=== PATIENT | female | born 1995 | race Two or more races ===

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

== ENCOUNTER 2018-12-31 03:10 | Emergency (ER) | payer SELFPAY ==
[2018-12-31] MEDS ORDERED: IPRATROPIUM/ALBUTEROL 0.5-2.5 MG/3 ML AMPUL NEB ONE (04:24)
[2018-12-31] MEDS ORDERED: METHYLPREDNISOLONE INJ 125 MG/2 ML SDV IV ONE (04:25)
[2018-12-31] MEDS ORDERED: ALBUTEROL SULFATE 0.083% NEB 2.5 MG/3 ML AMPUL NEB ONE (04:25)
[2018-12-31] MEDS: MAGNESIUM SULFATE/D5W 1 GM/100 ML RTUPB IV SCH ×2 (04:43→05:03)
[2018-12-31] MEDS ORDERED: ALBUTEROL SULFATE HFA (90 MCG/PUFF) 8 GM MDI (1 MDI/ER DISP) IH ONE (05:53)
--- NOTE | 2018-12-31 05:54 | ER Document Report ---
ED Respiratory Problem - General Chief Complaint: Shortness Of Breath Stated Complaint: TROUBLE BREATHING Time Seen by Provider: 12/31/18 04:16 Mode of Arrival: Ambulatory Information source: Patient Notes: Patient is a 23-year-old female presenting to the emergency department with productive cough and wheezing that has been ongoing for 2 days. Patient denies history of asthma but reports that she has been prescribed an inhaler in the past. Patient denies any fevers or chills. Patient is speaking in short choppy sentences. TRAVEL OUTSIDE OF THE [place] IN LAST 30 DAYS: No - Related Data Allergies/Adverse Reactions: No Known Allergies Allergy (Verified 10/29/16 12:07) Past Medical History - General Information source: Patient - Social History Smoking Status: Never Smoker Chew tobacco use (# tins/day): No Frequency of alcohol use: Occasional Drug Abuse: Marijuana Family History: CVA, DM, Hypertension, Malignancy - Oral cancer Patient has suicidal ideation: No Patient has homicidal ideation: No Pulmonary Medical History: Reports: Hx Bronchitis - 2011 Renal/ Medical History: Denies: Hx Peritoneal Dialysis Musculoskeletal Medical History: Reports Hx Musculoskeletal Trauma Surgical Hx: Negative - Immunizations Immunizations up to date: Yes Hx Diphtheria, Pertussis, Tetanus Vaccination: Yes Review of Systems - Review of Systems Constitutional: No symptoms reported EENT: No symptoms reported Cardiovascular: No symptoms reported Respiratory: Cough, Wheezing Gastrointestinal: No symptoms reported Genitourinary: No symptoms reported Female Genitourinary: No symptoms reported Musculoskeletal: No symptoms reported Skin: No symptoms reported Hematologic/Lymphatic: No symptoms reported Neurological/Psychological: No symptoms reported Physical Exam - Vital signs Vitals: Temp Pulse Resp BP Pulse Ox 98.1 F 110 H 28 H 130/81 H 95 12/31/18 03:19 12/31/18 03:19 12/31/18 03:19 12/31/18 03:19 12/31/18 03:19 - Notes Notes: PHYSICAL EXAMINATION: GENERAL: Well-nourished and in mild respiratory distress. HEAD: Atraumatic, normocephalic. EYES: Pupils equal round and reactive to light, extraocular movements intact, conjunctiva are normal. ENT: Nares patent, oropharynx clear without exudates. Moist mucous membranes. NECK: Normal range of motion, supple without lymphadenopathy LUNGS: Inspiratory and expiratory wheezes noted bilaterally, increased work of breathing. HEART: Regular rate and rhythm without murmurs ABDOMEN: Soft, nontender, nondistended abdomen. No guarding, no rebound. No masses appreciated. Female : deferred Musculoskeletal: Normal range of motion, no pitting or edema. No cyanosis. NEUROLOGICAL: Cranial nerves grossly intact. Normal speech, normal gait. Normal sensory, motor exams PSYCH: Normal mood, normal affect. SKIN: Warm, Dry, normal turgor, no rashes or lesions noted. Course - Re-evaluation Re-evalutation: Patient presented to the emergency department in respiratory distress. She had audible inspiratory and expiratory wheezes. She was given breathing treatments here in the emergency department as well as 125 mg of Solu-Medrol IV and 2 g of magnesium sulfate IV. After monitoring the patient for some time patient's lung sounds did improve significantly and she only has faint expiratory wheezes noted at the time of final examination. She will be discharged home in stable condition with close follow-up with her primary care provider. The patient's emergency department workup and current diagnosis were explained to the patient and or family. Follow-up instructions were provided. Medications if prescribed were discussed. Instructions for when to return to the emergency department including specific worrisome symptoms were discussed with the patient and/or family. - Vital Signs Vital signs: Temp Pulse Resp BP Pulse Ox 97.9 F 110 H 16 129/87 H 97 12/31/18 06:01 12/31/18 03:19 12/31/18 06:01 12/31/18 06:00 12/31/18 06:01 Discharge - Discharge Clinical Impression: Wheezing Upper respiratory infection Qualifiers: URI type: unspecified URI Qualified Code(s): J06.9 - Acute upper respiratory infection, unspecified Condition: Stable Disposition: HOME, SELF-CARE Additional Instructions: You are seen and treated in the emergency department today for wheezing. Please use the albuterol inhaler as directed. You may take 2 puffs every 4 hours as needed for shortness of breath or wheezing. Please use the Tessalon Perles as needed for cough. Please do not smoke anymore marijuana or inhale anything into your lungs, allow your lungs to rest. Drink plenty of fluids. Tylenol or ibuprofen for any aches or pains. Follow-up with your primary care provider in 2 to 3 days if not improving. Return to the emergency department if your condition worsens in any way. Prescriptions: Benzonatate [Tessalon Perles 100 mg Capsule] 100 mg PO Q8HP PRN #30 capsule PRN Reason: Prednisone [Deltasone 20 mg Tablet] 3 tab PO DAILY 5 Days #15 tablet
[2018-12-31 06:07] VITALS: BP 129/87
== END 2018-12-31 06:07 | disposition home or self-care (01) ==
LOC: ER 03:10
DX: J06.9 Acute upper respiratory infection, unspecified (principal); R06.02 Shortness of breath; R05 Cough; J45.909 Unspecified asthma, uncomplicated
CPT/HCPCS: 94640 ×2; 99284; 96375; 96365; J2930; J3475; J3490; J7620

== ENCOUNTER 2019-05-26 17:22 | Inpatient (IN) | payer SELFPAY ==
[2019-05-26] MEDS ORDERED: ONDANSETRON HCL INJ/PF 4 MG/2 ML SDV IV ONE (19:17)
[2019-05-26] MEDS ORDERED: NORMAL SALINE 1000 ML 1,000 ML IV ONE ×3 (19:17→23:49)
--- NOTE | 2019-05-26 19:20 | ER Document Report ---
ED Medical Screen (RME) - General Chief Complaint: Dizziness Stated Complaint: DIZZY,VOMITING Time Seen by Provider: 05/26/19 19:12 Notes: Patient is a 24-year-old female who presents the emergency department with a chief complaint of vomiting. Patient reports over the past week and a half she has vomited almost daily and has also had diarrhea daily. Patient reports she has had chills and a temperature intermittently as high as 103. Patient reports she is had a 25 pound weight loss in the past week and a half. Patient reports chills. Patient reports she has not been seen by provider. Patient reports feeling extremely weak and having dizziness with standing. Patient reports he is unable to stand for long periods of time due to the dizziness. TRAVEL OUTSIDE OF THE [place] IN LAST 30 DAYS: No - Related Data Allergies/Adverse Reactions: No Known Allergies Allergy (Verified 05/26/19 19:10) Past Medical History - Social History Family history: Arthritis, CVA, Hypertension Pulmonary Medical History: Reports: Hx Bronchitis - 2011 Renal/ Medical History: Denies: Hx Peritoneal Dialysis Musculoskeltal Medical History: Reports Hx Musculoskeletal Trauma - Immunizations Immunizations up to date: Yes Hx Diphtheria, Pertussis, Tetanus Vaccination: Yes Physical Exam - Vital signs Vitals: Temp Pulse Resp BP Pulse Ox 98.3 F 125 H 18 125/75 100 05/26/19 18:08 05/26/19 18:08 05/26/19 18:08 05/26/19 18:08 05/26/19 18:08 Course - Re-evaluation Re-evalutation: 05/26/19 19:19 Patient pale, mucous membranes are dry. Patient was noted to be tachycardic with a heart rate of 125. Patient is not hypotensive or febrile at this time. We will obtain basic labs, start an IV and start IV fluids. I have greeted and performed a rapid initial assessment of this patient. A comprehensive ED assessment and evaluation of the patient, analysis of test results and completion of the medical decision making process will be conducted by additional ED providers. - Vital Signs Vital signs: Temp Pulse Resp BP Pulse Ox 98.3 F 125 H 18 125/75 100 05/26/19 18:08 05/26/19 18:08 05/26/19 18:08 05/26/19 18:08 05/26/19 18:08
[2019-05-26 19:47] LABS: ABSOLUTE LYMPHOCYTES (AUTO) 0.4 10^3/uL (0.5-4.7); ABSOLUTE MONOCYTES (AUTO) 0.1 10^3/uL (0.1-1.4); BASOPHILS % (AUTO) 0.4 % (0-2); EOSINOPHILS % (AUTO) 0.1 % (0-6); HEMATOCRIT 33.9 % (36.0-47.0); HEMOGLOBIN 11.6 g/dL (12.0-15.5); MEAN CORPUSCULAR HEMOGLOBIN 26.3 pg (27.0-33.4); MEAN CORPUSCULAR HGB CONC 34.1 g/dL (32.0-36.0); MEAN CORPUSCULAR VOLUME 77 fl (80-97); MONOCYTES % (AUTO) 4.5 % (3-13); PLATELET COUNT 105 10^3/uL (150-450); RED BLOOD COUNT 4.41 10^6/uL (3.72-5.28); RED CELL DISTRIBUTION WIDTH 14.4 % (11.5-14.0); TOTAL CELLS COUNTED % (AUTO) 100 %; WHITE BLOOD COUNT 2.5 10^3/uL (4.0-10.5)
[2019-05-26 20:00] LABS: A TYPE INFLUENZA AG NEGATIVE (NEGATIVE); ALBUMIN 3.5 g/dL (3.5-5.0); ALKALINE PHOSPHATASE 41 U/L (38-126); ANION GAP 14 (5-19); ASPARTATE AMINO TRANSFERASE 184 U/L (14-36); B INFLUENZA AG NEGATIVE (NEGATIVE); BILIRUBIN,DIRECT 0.1 mg/dL (0.0-0.4); BILIRUBIN,TOTAL 0.4 mg/dL (0.2-1.3); BLOOD UREA NITROGEN 66 mg/dL (7-20); CALCIUM 8.4 mg/dL (8.4-10.2); CARBON DIOXIDE 17 mmol/L (22-30); CHLORIDE 105 mmol/L (98-107); GLUCOSE 99 mg/dL (75-110); POTASSIUM 5.4 mmol/L (3.6-5.0); TOTAL PROTEIN 7.6 g/dL (6.3-8.2)
[2019-05-26 20:19] LABS: APPEARANCE,URINE CLOUDY; BILIRUBIN,URINE NEGATIVE (NEGATIVE); COLOR,URINE YELLOW; GLUCOSE, URINE NEGATIVE (NEGATIVE); KETONES,URINE NEGATIVE (NEGATIVE); LEUKOCYTE ESTERASE,URINE NEGATIVE (NEGATIVE); NITRITE,URINE NEGATIVE (NEGATIVE); PROTEIN,URINE 100 mg/dL (NEGATIVE); URINE SPECIFIC GRAVITY 1.016; UROBILINOGEN,URINE NEGATIVE mg/dL (<2.0)
[2019-05-26] MEDS ORDERED: MORPHINE SULFATE 10 MG/ML INJ IV ONE (21:35)
--- NOTE | 2019-05-26 21:36 | ER Document Report ---
ED General - General Chief Complaint: Vomiting Stated Complaint: DIZZY,VOMITING Time Seen by Provider: 05/26/19 19:12 TRAVEL OUTSIDE OF THE [place] IN LAST 30 DAYS: No - HPI Notes: Patient is a 24-year-old female who presents emergency department for evaluation. She is a very vague historian. She states she has not been feeling well for about a week and a half. She states she has been "too weak to stand." She states this started with night sweats, then fevers. She has had nausea with a few episodes of emesis daily. Emesis has been nonbloody, nonbilious. She states has had temperatures as high as 103 orally, the last one being about 2 days ago. She is still urinating. She denies any dysuria, hematuria, urinary frequency. Her pain is in her abdomen, is diffuse, and she really cannot descri be it. Nothing seems to make it better or worse. She states now she feels like she can even keep any water down. She has never had anything similar to this in the past. - Related Data Allergies/Adverse Reactions: No Known Allergies Allergy (Verified 05/26/19 19:10) Home Medications: Ibuprofen Past Medical History - General Information source: Patient - Social History Smoking Status: Never Smoker Family History: CVA, DM, Hypertension, Malignancy - Oral cancer Patient has suicidal ideation: No Patient has homicidal ideation: No Pulmonary Medical History: Reports: Hx Bronchitis - 2012 Renal/ Medical History: Denies: Hx Peritoneal Dialysis Musculoskeletal Medical History: Reports Hx Musculoskeletal Trauma - Immunizations Immunizations up to date: Yes Hx Diphtheria, Pertussis, Tetanus Vaccination: Yes Review of Systems - Review of Systems Constitutional: See HPI EENT: No symptoms reported Cardiovascular: No symptoms reported Respiratory: No symptoms reported Gastrointestinal: See HPI Genitourinary: No symptoms reported Musculoskeletal: No symptoms reported Skin: No symptoms reported Neurological/Psychological: No symptoms reported Physical Exam - Vital signs Vitals: Temp Pulse Resp BP Pulse Ox 98.3 F 125 H 18 125/75 100 05/26/19 18:08 05/26/19 18:08 05/26/19 18:08 05/26/19 18:08 05/26/19 18:08 - Notes Notes: This is a 24-year-old female who appears her stated age in no acute distress. Vital signs reviewed, please refer to chart. Head is normocephalic, atraumatic. Pupils equal round, reactive to light. Oral mucosa slightly dry. Neck is supple without meningismus. Heart is regular rate and rhythm. Lungs are clear to auscultation bilaterally. Abdomen is soft, diffusely tender without rebound or guarding, normoactive bowel sounds throughout. Extremities without cyanosis, clubbing. Posterior calves are nontender. Peripheral pulses are equal. Skin is warm and dry. She has multiple excoriations and picked skin lesions to face, bilateral upper and lower extremities. Patient is awake, alert, neurological exam is nonfocal. Course - Re-evaluation Re-evalutation: 05/26/19 21:35 Patient presents emergency department for evaluation. She had initial laboratory investigations and fluids as ordered through triage. Her laboratory investigations are consistent with acute pancreatitis as well as acute renal failure. She is given further IV fluids. She is kept n.p.o. She is given analgesia. I am concerned about the possibility of drug use in this patient with multiple skin lesions. Urine tox screen was added as well. She unfortunately cannot undergo a CT scan of the abdomen pelvis with IV contrast secondary to her renal function. Ultrasound is ordered. We will continue to monitor. 05/26/19 23:50 Ultrasound reveals findings consistent with inflammation of the pancreatic head/pancreatitis. No clear obstructive etiology was found. Patient was kept n.p.o., given IV fluids. I spoke with Dr. Arenas. We discussed the possibility of antibiotic therapy, but decision was made to withhold. At this point, patient does have a pancytopenia, a moderately elevated lipase, and acute renal failure. She is, however stable, and will be admitted to the floor for further care. - Vital Signs Vital signs: Temp Pulse Resp BP Pulse Ox 98.9 F 125 H 18 125/75 100 05/26/19 20:27 05/26/19 18:08 05/26/19 18:08 05/26/19 18:08 05/26/19 18:08 - Laboratory Result Diagrams: 05/26/19 19:31 05/26/19 19:31 Laboratory results interpreted by me: 05/26/19 05/26/19 05/26/19 19:31 19:31 19:50 WBC 2.5 L Hgb 11.6 L Hct 33.9 L MCV 77 L MCH 26.3 L RDW 14.4 H Plt Count 105 L Absolute Lymphs (auto) 0.4 L Seg Neutrophils % 81.0 H Sodium 136.4 L Potassium 5.4 H Carbon Dioxide 17 L BUN 66 H Creatinine 2.12 H Est GFR ( Amer) 35 L Est GFR (MDRD) Non-Af 29 L AST 184 H Lipase 1853.8 H Urine Protein 100 H Urine Blood LARGE H - Diagnostic Test Radiology reviewed: Reports reviewed Radiology results interpreted by me: 05/26/19 23:50 Abdomen Ultrasound 05/26/19 21:34 IMPRESSION: No cholelithiasis, evidence of acute cholecystitis, or evidence of biliary obstruction. Possible pancreatitis involving the pancreatic head versus artifact producing decreased echogenicity. Discharge - Discharge Clinical Impression: Pancytopenia Acute pancreatitis Qualifiers: Pancreatitis type: unspecified pancreatitis type Acute pancreatitis co mplication: unspecified Qualified Code(s): K85.90 - Acute pancreatitis without necrosis or infection, unspecified Acute renal failure Qualifiers: Acute renal failure type: unspecified Qualified Code(s): N17.9 - Acute kidney failure, unspecified Condition: Stable Disposition: ADMITTED INPATIENT Admitting Provider: Deepa (Hospitalist) Unit Admitted: Medical Floor
[2019-05-26 22:24] LABS: URINE AMPHETAMINES SCREEN NEGATIVE; URINE BARBITURATES SCREEN NEGATIVE; URINE BENZODIAZEPINES SCREEN NEGATIVE; URINE COCAINE SCREEN NEGATIVE; URINE METHADONE SCREEN NEGATIVE; URINE PHENCYCLIDINE SCREEN NEGATIVE
[2019-05-26 22:25] LABS: URINE MARIJUANA (THC) SCREEN UNCONFIRMED POSITIVE
--- NOTE | 2019-05-26 22:40 | RADIOLOGY REPORT (SQ) ---
US ABDOMEN LIMITED HISTORY: RUQ abdominal pain, pancreatitis COMPARISON: none TECHNIQUE: Real-time sonographic images of the right upper quadrant of the abdomen were obtained including color flow analysis. FINDINGS: The liver is normal in appearance and measures 11.7 cm in length. Imaged hepatic and portal veins are patent with normal directional flow. No intrahepatic or extrahepatic biliary ductal dilatation. 2.0-mm common hepatic duct. The gallbladder is adequately distended. No gallstone, gallbladder wall thickening or pericholecystic fluid. Negative sonographic Pickett's sign. The head of the pancreas is somewhat hypoechoic. The body of the pancreas is unremarkable. The pancreatic tail is not visualized. The right kidney is unremarkable measuring 10.3 cm in length. No shadowing calculi or right-sided hydronephrosis. No free fluid in Morison's pouch. No abdominal aortic aneurysm. IMPRESSION: No cholelithiasis, evidence of acute cholecystitis, or evidence of biliary obstruction. Possible pancreatitis involving the pancreatic head versus artifact producing decreased echogenicity.
[2019-05-27] MEDS ORDERED: MORPHINE SULFATE 10 MG/ML INJ IV ONE (00:03)
[2019-05-27] MEDS ORDERED: PROMETHAZINE HCL INJ 25 MG/1 ML VIAL IV PRN (00:34)
[2019-05-27] MEDS ORDERED: CHLORPROMAZINE HCL INJ 25 MG/1 ML AMPULE IV PRN (00:45)
[2019-05-27] MEDS ORDERED: MORPHINE SULFATE 10 MG/ML INJ IV PRN ×2 (00:45)
[2019-05-27] MEDS ORDERED: ACETAMINOPHEN 650 MG SUPP.RECT PR PRN (00:45)
[2019-05-27] MEDS: DEXTROSE 5%-NORMAL SALINE 1,000 ML IV PRN ×5 (01:30→20:21)
[2019-05-27] MEDS ORDERED: INFLUENZA QUAD (6MOS+) 2019-20 VAC 0.5 ML SYR IM ONE (02:14)
--- NOTE | 2019-05-27 03:02 | PDOC H&P ---
History of Present Illness Admission Date/PCP: 05/26/19 23:56 Jama Daily MD Patient complains of: Vomiting History of Present Illness: HALLIE ROSS is a 24 year old female who presents to the emergency room with a 2- week history of vomiting. The patient admits to 1 or more episodes of severe nausea with severe vomiting, worsening progressively on a daily basis for the last 2 weeks. The nausea and vomiting have been accompanied by 1 or more diarrhea stools every day and are associated with intermittent night sweats, subjective fevers with chills, a 25 pound weight loss, generalized weakness, malaise, fatigue, ague, abdominal pain and orthostatic dizziness. She describes her abdominal pain as a constant, severe, nonradiating, aching pain over the entire abdomen but worse in the upper periumbilical region. Her pain is increased by episodes of vomiting. Her nausea and vomiting of reached the point where she is now unable to keep any fluids or food. She denies other associated or accompanying signs and symptoms. She denies prior similar episodes. She has not identified any additional aggravating or ameliorating factors for her vomiting. In the emergency room she was found to have an elevated serum lipase with pancreatitis demonstrated on an abdominal ultrasound. She was subsequently admitted to the hospital for further evaluation treatment. Past Medical History Cardiac Medical History: Denies: Coronary Artery Disease, Hyperlipidema, Hypertension Pulmonary Medical History: Reports: Bronchitis - 2012 Denies: Asthma, Chronic Obstructive Pulmonary Disease (COPD) EENT Medical History: Denies: Cataracts, Nose - Nasal polyps Neurological Medical History: Reports: Migraine Denies: Multiple Sclerosis, Seizures Endocrine Medical History: Denies: Diabetes Mellitus Type 1, Hyperthyroidism, Hypothyroidism Renal/ Medical History: Denies: Chronic Kidney Disease, Nephrolithiasis Malignancy Medical History: Reports: None GI Medical History: Denies: Cirrhosis, Hepatitis, Peptic Ulcer Disease Musculoskeltal Medical History: Denies: Arthritis, Fibromyalgia Skin Medical History: Reports: Other - Folliculitis Denies: Eczema, Psoriasis Psychiatric Medical History: Reports: Substance Abuse Denies: Alcohol Dependency, Tobacco Dependency Traumatic Medical History: Reports: None Hematology: Denies: Anemia, Bleeding Tendencies Infectious Medical History: Reports: None Past Surgical History Past Surgical History: Reports: None Social History Information Source: Patient Lives with: Spouse/Significant other Smoking Status: Never Smoker Electronic Cigarette use?: No Frequency of Alcohol Use: None Hx Recreational Drug Use: Yes Drugs: Marijuana Hx Prescription Drug Abuse: No - Advance Directive Resuscitation Status: Full Code Surrogate healthcare decision maker:: Igor Mccord Family History Family History: CVA, DM, Hypertension, Malignancy - Oral cancer. denies: CAD Parental Family History Reviewed: Yes Children Family History Reviewed: No Sibling(s) Family History Reviewed.: Yes Medication/Allergy Home Medications: No Home Medications 05/26/19 Allergies/Adverse Reactions: No Known Allergies Allergy (Verified 05/26/19 19:10) Review of Systems Constitutional: PRESENT: as per HPI, chills, fatigue, fever(s), night sweats, we akness, weight loss Eyes: ABSENT: visual disturbances, other - Eye pain Ears: ABSENT: hearing changes, other - Ear pain Nose, Mouth, and Throat: ABSENT: headache(s), mouth pain, sore throat Cardiovascular: ABSENT: chest pain, palpitations Respiratory: ABSENT: cough, dyspnea Gastrointestinal: PRESENT: as per HPI, abdominal pain, diarrhea, nausea, vo miting. ABSENT: constipation, hematemesis, hematochezia Genitourinary: ABSENT: difficulty urinating, dysuria, hematuria Musculoskeletal: ABSENT: back pain, joint swelling Integumentary: PRESENT: pruritus - Bilateral arms, rash - Bilateral arms Neurological: ABSENT: confusion, convulsions, focal weakness, memory loss, syncope Psychiatric: ABSENT: anxiety, depression Endocrine: ABSENT: cold intolerance, heat intolerance, polydipsia, polyphagia, polyuria Hematologic/Lymphatic: ABSENT: easy bleeding, easy bruising Allergic/Immunologic: ABSENT: seasonal rhinorrhea Physical Exam Vital Signs: Temp Pulse Resp BP Pulse Ox 98.9 F 125 H 18 125/75 100 05/26/19 20:27 05/26/19 18:08 05/26/19 18:08 05/26/19 18:08 05/26/19 18:08 Intake & Output 05/25/19 05/26/19 05/27/19 23:59 23:59 23:59 Intake Total 1999 Balance 1999 Weight 56.7 kg General appearance: PRESENT: cooperative, mild distress - Secondary to nausea vomiting and abdominal pain Head exam: PRESENT: atraumatic, normocephalic Eye exam: PRESENT: conjunctiva pink. ABSENT: conjunctival injection, scleral icterus Ear exam: PRESENT: normal external ear exam. ABSENT: bleeding, drainage Mouth exam: PRESENT: dry mucosa, neck supple Neck exam: ABSENT: thyromegaly, tracheal deviation Respiratory exam: PRESENT: clear to auscultation kael, symmetrical, unlabored Cardiovascular exam: PRESENT: RRR. ABSENT: clicks, gallop, rubs Pulses: PRESENT: normal radial pulses, normal dorsalis pedis pul - LDL 34 family history of regular disorder will be given over the leg Vascular exam: PRESENT: normal capillary refill. ABSENT: pallor - Will remain on melena with Effexor GI/Abdominal exam: PRESENT: normal bowel sounds, soft Rectal exam: PRESENT: deferred Extremities exam: ABSENT: joint swelling, pedal edema Musculoskeletal exam: ABSENT: deformity, dislocation Neurological exam: PRESENT: alert, oriented to person, oriented to place, oriented to time, oriented to situation, CN II-XII grossly intact. ABSENT: motor sensory deficit Psychiatric exam: PRESENT: appropriate affect, normal mood Skin exam: PRESENT: dry, intact, rash - Bilateral upper extremities with insect bite (bedbugs) rash., warm. ABSENT: jaundice, urticaria Results Laboratory Results: 05/26/19 19:31 05/26/19 19:31 05/26/19 05/26/19 05/26/19 19:31 19:31 19:50 WBC 2.5 L RBC 4.41 Hgb 11.6 L Hct 33.9 L MCV 77 L MCH 26.3 L MCHC 34.1 RDW 14.4 H Plt Count 105 L Seg Neutrophils % 81.0 H Sodium 136.4 L Potassium 5.4 H Chloride 105 Carbon Dioxide 17 L Anion Gap 14 BUN 66 H Creatinine 2.12 H Est GFR ( Amer) 35 L Glucose 99 Calcium 8.4 Total Bilirubin 0.4 AST 184 H Alkaline Phosphatase 41 Total Protein 7.6 Albumin 3.5 Lipase 1853.8 H Urine Color YELLOW Urine Appearance CLOUDY Urine pH 6.0 Ur Specific Williamson 1.016 Urine Protein 100 H Urine Glucose (UA) NEGATIVE Urine Ketones NEGATIVE Urine Blood LARGE H Urine Nitrite NEGATIVE Ur Leukocyte Esterase NEGATIVE Urine WBC (Auto) 11 Urine RBC (Auto) 35 Impressions: Abdomen Ultrasound 05/26/19 21:34 IMPRESSION: No cholelithiasis, evidence of acute cholecystitis, or evidence of biliary obstruction. Possible pancreatitis involving the pancreatic head versus artifact producing decreased echogenicity. Assessment and Plan - Diagnosis (1) Acute pancreatitis Qualifiers: Pancreatitis type: unspecified pancreatitis type Acute pancreatitis complication: unspecified Qualified Code(s): K85.90 - Acute pancreatitis without necrosis or infection, unspecified Is this a current diagnosis for this admission?: Yes (2) Acute nontraumatic kidney injury Is this a current diagnosis for this admission?: Yes (3) Abdominal pain Qualifiers: Abdominal location: generalized Qualified Code(s): R10.84 - Generalized abdominal pain Is this a current diagnosis for this admission?: Yes (4) Hypotension due to hypovolemia Is this a current diagnosis for this admission?: Yes (5) Tachycardia Is this a current diagnosis for this admission?: Yes - Plan Summary Summary: Patient is admitted to the medical floor where she will receive routine supportive and symptomatic cares. She will be treated with high-volume IV fluids utilizing D5 LR. She will receive morphine sulfate 2 to 4 mg IV every 2 hours on an as needed basis for pain control. She will receive Protonix 40 mg I V every 12 hours for stomach acid suppression. She will be on clear liquids until she can tolerate them well before advancing her diet. Her intractable vomiting will be treated with chlorpromazine 25 mg IV every 4 hours as needed. CBCs, metabolic profiles, lipase levels, amylase levels and magnesium levels be followed on a regular basis as needed. A lipid profile and a thyroid profile will be obtained as part of her evaluation. - Time Time Spent with patient: 25-34 minutes Medications reviewed and adjusted accordingly: No - No home meds Anticipated discharge: Home - Inpatient Certification Based on my medical assessment, after consideration of the patient's comorbidities, presenting symptoms, or acuity I expect that the services needed warrant INPATIENT care.: Yes I certify that my determination is in accordance with my understanding of [facility]'s requirements for reasonable and necessary INPATIENT services [42 CFR 412.3e].: Yes Medical Necessity: Need Close Monitoring Due to Risk of Patient Decompensation, Need For IV Fluids, Need for Pain Control, Risk of Complication if Not Cared For in Hospital
[2019-05-27] MEDS ORDERED: DIPHENHYDRAMINE HCL 50 MG/ML VIAL IV PRN (03:08)
[2019-05-27] MEDS: HEPARIN SOD (PORCINE) 5,000 UNIT/ML 1 ML VIAL SUBCUT SCH ×3 (05:08→22:55)
[2019-05-27 06:22] LABS: VENOUS BLOOD BASE EXCESS -10.4 mmol/L; VENOUS BLOOD HCO3 15.4 mmol/L (20-32); VENOUS BLOOD PCO2 33.5 mmHg (35-63); VENOUS BLOOD PH 7.28 (7.30-7.42)
[2019-05-27 06:44] LABS: ANION GAP 7 (5-19); BLOOD UREA NITROGEN 48 mg/dL (7-20); CARBON DIOXIDE 16 mmol/L (22-30); CHLORIDE 117 mmol/L (98-107); GLUCOSE 158 mg/dL (75-110); TRIGLYCERIDES 243 mg/dL (<150)
[2019-05-27 06:56] LABS: DIRECT LDL < 30 mg/dL (<100); VLDL CHOLESTEROL 48.6 mg/dL (10-31)
[2019-05-27 07:02] LABS: CALCIUM 6.6 mg/dL (8.4-10.2)
[2019-05-27] MEDS: METOCLOPRAMIDE HCL INJ/PF 10 MG/2 ML SDV IV SCH ×4 (07:59→22:49)
[2019-05-27] MEDS: ACETAMINOPHEN 325 MG TABLET PO PRN ×2 (07:59→22:00)
[2019-05-27 09:25] LABS: FREE T3 1.76 pg/mL (2.77-5.27); FREE T4 (FREE THYROXINE) 0.92 ng/dL (0.78-2.19)
[2019-05-27] MEDS: CALAMINE/ZINC OXIDE LOTION 177 ML/BOTTLE TP SCH ×4 (11:04→22:55)
[2019-05-27] MEDS: PANTOPRAZOLE SODIUM 40 MG VIAL IV SCH ×2 (11:05→22:49)
--- NOTE | 2019-05-27 14:49 | Progress Note ---
Provider Note Provider Note: She was admitted after midnight for presumed pancreatitis. Ultrasound of the abdomen last night showed the bladder to be normal there is impression of possible pancreatitis involving the pancreatic head versus artifact producing decreased echogenicity. On exam patient was tender in the suprapubic region the left lower quadrant. She emphatically denies any alcohol or drug abuse patient also denies multiple sex partners patient denies any recent changes in bowel or bladder habits patient denies any recent vaginal discharge. States her symptoms have been going on for about 10 days and basically started with feeling dizzy and vomiting off and on. Patient has been complaining of some suprapubic pain Observe little confusing she is got a leukopenia and thrombocytopenia she also has a little bit of acute kidney injury so this is improving with fluids TSH is elevated at 13.6 triglycerides are slightly elevated as well I am repeating a lot of her labs and getting a CT of the abdomen and pelvis with oral contrast only. Also presents a little bit like PID
[2019-05-27 16:03] LABS: HEMATOCRIT 22.3 % (36.0-47.0); MEAN CORPUSCULAR HEMOGLOBIN 25.6 pg (27.0-33.4); MEAN CORPUSCULAR VOLUME 78 fl (80-97); RED BLOOD COUNT 2.87 10^6/uL (3.72-5.28); RED CELL DISTRIBUTION WIDTH 14.5 % (11.5-14.0)
--- NOTE | 2019-05-27 16:25 | RADIOLOGY REPORT (SQ) ---
EXAM DESCRIPTION: CT ABD/PELVIS ORAL ONLY COMPLETED DATE/TIME: 05/27/2019 3:58 pm REASON FOR STUDY: abdominal pain, LLQ?? COMPARISON: Ultrasound dated 05/26/2019, prior CT abdomen pelvis dated 10/29/2016 TECHNIQUE: CT scan of the abdomen and pelvis performed without intravenous or oral contrast. Images reviewed with lung, soft tissue, and bone windows. Reconstructed coronal and sagittal MPR images revi ewed. All images stored on PACS. All CT scanners at this facility use dose modulation, iterative reconstruction, and/or weight based d osing when appropriate to reduce radiation dose to as low as reasonably achievable (ALARA). [facility]: Dose Right [facility]: CareDose [facility]: Dose Right [facility]: Teradose 4D [facility]: [employer] RADIATION DOSE: CT Rad equipment meets quality standard of care and radiation dose reduction techniq ues were employed. CTDIvol: 3.5 mGy. DLP: 187 mGy-cm.mGy. LIMITATIONS: None. FINDINGS: LOWER CHEST: Minimal airspace disease in the right base most likely atelectasis. NON-CONTRASTED LIVER, SPLEEN, ADRENALS: Evaluation limited by lack of IV contrast. No identified sign ificant masses. PANCREAS: Limited evaluation secondary lack of IV contrast. No obvious focal inflammatory changes. GALLBLADDER: No identified stones by CT criteria. No inflammatory changes to suggest cholecystitis. RIGHT KIDNEY AND URETER: Mild nonspecific right perinephric stranding. No significant calcification s. No hydronephrosis or hydroureter. LEFT KIDNEY AND URETER: Mild nonspecific left perinephric stranding. No significant calcifications. No hydronephrosis or hydroureter. AORTA AND RETROPERITONEUM: No aneurysm. Mild inflammation surrounding both cell as muscles extending into the pelvis along the right and left neurovascular bundles. BOWEL AND PERITONEAL CAVITY: No free fluid. No inflammatory changes in the perineum. There is scatt ered peritoneal adenopathy. APPENDIX: Normal. PELVIS, BLADDER, AND ABDOMINAL WALL:As above. Mild inflammation involving the ileopsoas muscles. BONES: No significant findings. OTHER: No other significant finding. IMPRESSION: Mild bilateral perinephric inflammatory changes. There is indistinctness of both the ri ght and left ileopsoas muscles with mild surrounding stranding in the retroperitoneal fat. This exte nds into the pelvis along the neurovascular bundles. Etiology of this is uncertain. Changes may be secondary to pyelonephritis. No focal abscess is identified on this noncontrast exam. Myositis is a lso a consideration. COMMENT: Quality ID # [id number]: Final reports with documentation of one or more dose reduction techniques (e.g., Automated exposure control, adjustment of the mA and/or kV according to patient size, use of iterative reconstruction technique) TECHNICAL DOCUMENTATION: JOB ID: [id number] [employer]- All Rights Reserved Reading location - IP/workstation name: [email or web address]
[2019-05-27] MEDS: MORPHINE SULFATE 10 MG/ML INJ IV PRN (16:41)
[2019-05-27 16:58] LABS: ABSOLUTE LYMPHOCYTES# (MANUAL) 0.2 10^3/uL (0.5-4.7); BASOPHILS % (MANUAL) 0 % (0-2); EOSINOPHILS % (MANUAL) 0 % (0-6); LYMPHOCYTES % (MANUAL) 14 % (13-45); MONOCYTES % (MANUAL) 0 % (3-13); SEGMENTED NEUTROPHILS % (MAN) 86 % (42-78); TOTAL CELLS COUNTED 50
[2019-05-27 16:59] LABS: ANISOCYTOSIS SLIGHT; HYPOCHROMASIA SLIGHT; OVALOCYTES 1+
[2019-05-27 17:00] LABS: PLATELET COMMENT DECREASED; PLATELET COUNT 78 10^3/uL (150-450); WHITE BLOOD COUNT 1.6 10^3/uL (4.0-10.5)
[2019-05-27 17:53] LABS: HEMOGLOBIN 7.4 g/dL (12.0-15.5)
[2019-05-27] MEDS ORDERED: CEFTRIAXONE 1 GM/D5W RTU 1 GM/50 ML RTUPB IV SCH (18:00)
[2019-05-27 18:51] LABS: FIBRINOGEN 528 mg/dL (209-497); INTERNATIONAL RATION (INR) 1.05; PROTHROMBIN TIME 13.7 SEC (11.4-15.4)
[2019-05-27 18:52] LABS: PARTIAL THROMBOPLASTIN TIME 35.7 SEC (23.5-35.8)
--- NOTE | 2019-05-27 19:38 | Progress Note ---
Provider Note Provider Note: Patient's CT scan is come back showing probable pyelonephritis, with extenuation into the iliopsoas muscle and up the abdominal wall and gutters. Would account for inflammation around the pancreas as opposed to true pancreatitis. Would also account for the patient's suprapubic pain and left lower quadrant pain. I have started the patient on antibiotics and because of her leukopenia and thrombocytopenia have consulted oncology, Explained this to the patient, blood cultures tonight. Repeat labs in the morning.
[2019-05-27 19:47] LABS: FREE T3 1.3 pg/mL (2.77-5.27); FREE T4 (FREE THYROXINE) 0.94 ng/dL (0.78-2.19)
[2019-05-27] MEDS: IMIPENEM/CILASTATIN SODIUM 500 MG in NORMAL SALINE 100 ML IV SCH (20:20)
[2019-05-27] MEDS ORDERED: DOXYCYCLINE HYCLATE 100 MG in DEXTROSE 5%-WATER 250 ML IV SCH (22:00)
--- NOTE | 2019-05-27 22:32 | Progress Note ---
Provider Note Provider Note: Critical care note: 05/27/2019 Critical care start time: 20:41 Critical care issue: Tachycardia, sepsis alert I was asked by the patient's nurse to evaluate the patient based on the new sepsis alert which had been issued and required investigation. Patient continues to be tachycardic despite massive fluid replacement throughout the day. On evaluation she appears less ill than she did when I saw her last evening at the time of admission. She is noted to have skin pallor that is definitely increased on today's evaluation but is noted to have less abdominal tenderness. She has been tolerating minimal oral intake with only one episode of emesis today. She is noted to continue to be tachycardic. A review of her laboratory results showed that she is hypothyroid, has hypertriglyceridemia and has a significant pancytopenia. I have discussed her current care, antibiotic therapy and the reason for a reevaluation this evening with the patient at length. I have ordered a CBC with differential, a comprehensive metabolic profile and a venous blood gas to be done on an urgent basis and those results will be followed after this visit. A CT scan of the abdomen and pelvis with IV contrast was ordered. Critical care end time: 22:06 Total critical care time: 21 minutes
[2019-05-27 23:02] LABS: VENOUS BLOOD BASE EXCESS -10.5 mmol/L; VENOUS BLOOD HCO3 15.4 mmol/L (20-32); VENOUS BLOOD PCO2 33.9 mmHg (35-63); VENOUS BLOOD PH 7.28 (7.30-7.42)
[2019-05-27 23:06] LABS: HEMATOCRIT 22.5 % (36.0-47.0); MEAN CORPUSCULAR HEMOGLOBIN 25.6 pg (27.0-33.4); MEAN CORPUSCULAR VOLUME 78 fl (80-97); RED CELL DISTRIBUTION WIDTH 14.5 % (11.5-14.0)
[2019-05-27 23:35] LABS: PLATELET COUNT 78 10^3/uL (150-450)
[2019-05-27 23:37] LABS: ALBUMIN 2.2 g/dL (3.5-5.0); ALKALINE PHOSPHATASE 25 U/L (38-126); ANION GAP 8 (5-19); ASPARTATE AMINO TRANSFERASE 132 U/L (14-36); BILIRUBIN,DIRECT 0.2 mg/dL (0.0-0.4); BILIRUBIN,TOTAL 0.2 mg/dL (0.2-1.3); CARBON DIOXIDE 14 mmol/L (22-30); CHLORIDE 117 mmol/L (98-107); GLUCOSE 98 mg/dL (75-110); TOTAL PROTEIN 5.2 g/dL (6.3-8.2)
[2019-05-27 23:42] LABS: ABSOLUTE LYMPHOCYTES# (MANUAL) 0.2 10^3/uL (0.5-4.7); ABSOLUTE MONOCYTES # (MANUAL) 0.1 10^3/uL (0.1-1.4); BAND NEUTROPHILS % (MANUAL) 2 % (3-5); BASOPHILS % (MANUAL) 0 % (0-2); EOSINOPHILS % (MANUAL) 0 % (0-6); LYMPHOCYTES % (MANUAL) 16 % (13-45); MONOCYTES % (MANUAL) 6 % (3-13); SEGMENTED NEUTROPHILS % (MAN) 76 % (42-78); TOTAL CELLS COUNTED 50
[2019-05-27 23:46] LABS: BLOOD UREA NITROGEN 28 mg/dL (7-20)
[2019-05-27 23:47] LABS: CALCIUM 6.2 mg/dL (8.4-10.2)
[2019-05-27 23:51] LABS: ANISOCYTOSIS SLIGHT; OVALOCYTES 2+; POIKILOCYTOSIS 1+; SCHISTOCYTES SLIGHT; TEAR DROP CELLS 1+; TOXIC GRANULATION SLIGHT; TOXIC VACUOLATION PRESENT
[2019-05-27 23:52] LABS: PLATELET COMMENT DECREASED
[2019-05-27 23:56] LABS: WHITE BLOOD COUNT 1.2 10^3/uL (4.0-10.5)
[2019-05-27 23:57] LABS: HEMOGLOBIN 7.4 g/dL (12.0-15.5)
[2019-05-28] MEDS: IMIPENEM/CILASTATIN SODIUM 500 MG in NORMAL SALINE 100 ML IV SCH ×2 (02:35→08:14)
[2019-05-28] MEDS: HEPARIN SOD (PORCINE) 5,000 UNIT/ML 1 ML VIAL SUBCUT SCH ×3 (05:27→22:43)
[2019-05-28 06:05] LABS: MEAN CORPUSCULAR HEMOGLOBIN 25.7 pg (27.0-33.4); MEAN CORPUSCULAR HGB CONC 33.2 g/dL (32.0-36.0); MEAN CORPUSCULAR VOLUME 78 fl (80-97); RED BLOOD COUNT 2.84 10^6/uL (3.72-5.28); RED CELL DISTRIBUTION WIDTH 14.6 % (11.5-14.0)
[2019-05-28 06:24] LABS: ANION GAP 6 (5-19); BLOOD UREA NITROGEN 25 mg/dL (7-20); CARBON DIOXIDE 16 mmol/L (22-30); CHLORIDE 117 mmol/L (98-107); GLUCOSE 98 mg/dL (75-110); POTASSIUM 4.2 mmol/L (3.6-5.0)
[2019-05-28 06:25] LABS: AMYLASE 411 U/L (30-110)
[2019-05-28 06:31] LABS: CALCIUM 6.3 mg/dL (8.4-10.2)
[2019-05-28 07:32] LABS: PLATELET COUNT 77 10^3/uL (150-450)
[2019-05-28 07:46] LABS: CHLAM PCR NOT DETECTED (NOT DETECT)
[2019-05-28 08:03] LABS: HEMOGLOBIN 7.3 g/dL (12.0-15.5); WHITE BLOOD COUNT 1.3 10^3/uL (4.0-10.5)
[2019-05-28] MEDS: DEXTROSE 5%-NORMAL SALINE 1,000 ML IV PRN ×2 (08:14→17:58)
[2019-05-28] MEDS: METOCLOPRAMIDE HCL INJ/PF 10 MG/2 ML SDV IV SCH ×4 (08:14→22:42)
[2019-05-28] MEDS: ACETAMINOPHEN 325 MG TABLET PO PRN ×2 (08:20→17:54)
[2019-05-28 09:00] LABS: ABSOLUTE RETICS # 0.019 10^6/uL (0.028-0.122); RETICULOCYTE COUNT (AUTO) 0.67 % (0.66-2.85)
--- NOTE | 2019-05-28 09:29 | RADIOLOGY REPORT (SQ) ---
EXAM DESCRIPTION: CT ABD/PELVIS WITH IV ONLY COMPLETED DATE/TIME: 05/28/2019 9:09 am REASON FOR STUDY: abdominal pain COMPARISON: 10/29/2016 TECHNIQUE: CT scan of the abdomen and pelvis performed with intravenous and oral contrast using gabriela eve scanning technique with dynamic intravenous contrast injection. Images reviewed with lung, soft t issue, and bone windows. Reconstructed coronal and sagittal MPR images reviewed. Delayed images for e valuation of the urinary system also acquired. All images stored on PACS. All CT scanners at this facility use dose modulation, iterative reconstruction, and/or weight based d osing when appropriate to reduce radiation dose to as low as reasonably achievable (ALARA). [facility]: Dose Right [facility]: CareDose [facility]: Dose Right [facility]: Teradose 4D [facility]: [employer] CONTRAST TYPE AND DOSE: contrast/concentration: Isovue 350.00 mg/ml; Total Contrast Delivered: 66.0 ml; Total Saline Delivered: 65.0 ml RENAL FUNCTION: GFR > 60. RADIATION DOSE: CT Rad equipment meets quality standard of care and radiation dose reduction techniq ues were employed. CTDIvol: 3.7 mGy. DLP: 370 mGy-cm. . LIMITATIONS: None. FINDINGS: LOWER CHEST: No significant findings. No nodules or infiltrates. LIVER: Normal size. No masses. No dilated ducts. SPLEEN: Normal size. No focal lesions. PANCREAS: No masses. No significant calcifications. No adjacent inflammation or peripancreatic fluid collections. Pancreatic duct not dilated. GALLBLADDER: No identified stones by CT criteria. No inflammatory changes to suggest cholecystitis. ADRENAL GLANDS: No significant masses or asymmetry. RIGHT KIDNEY AND URETER: No solid masses. No significant calcifications. No hydronephrosis or hyd roureter. LEFT KIDNEY AND URETER: No solid masses. No significant calcifications. No hydronephrosis or hydr oureter. AORTA AND VESSELS: No aneurysm. No dissection. Renal arteries, SMA, celiac without stenosis. RETROPERITONEUM: No retroperitoneal adenopathy, hemorrhage or masses. BOWEL AND PERITONEAL CAVITY: No obstruction. No visualized masses. No free fluid. No inflammatory ch anges or thickening of bowel wall. APPENDIX: Normal. PELVIS: No significant masses. Normal bladder. No free fluid. ABDOMINAL WALL: No masses. No hernias. BONES: No significant or acute findings. OTHER: No other significant finding. IMPRESSION: NO SIGNIFICANT OR ACUTE FINDINGS IN THE ABDOMEN OR PELVIS. TECHNICAL DOCUMENTATION: JOB ID: [id number] Quality ID # [id number]: Final reports with documentation of one or more dose reduction techniques (e.g., Au tomated exposure control, adjustment of the mA and/or kV according to patient size, use of iterative reconstruction technique) 2010 [employer]- All Rights Reserved Reading location - IP/workstation name: [email or web address]
[2019-05-28] MEDS: PANTOPRAZOLE SODIUM 40 MG VIAL IV SCH ×2 (09:45→22:41)
[2019-05-28 10:18] LABS: FOLATE 8.71 ng/mL (>2.76)
[2019-05-28] MEDS: CALAMINE/ZINC OXIDE LOTION 177 ML/BOTTLE TP SCH ×4 (10:30→22:43)
[2019-05-28 11:24] LABS: PATH REVIEW PATHOLOGIST REVIEWED
[2019-05-28] MEDS ORDERED: PIPERACILLIN SODIUM/TAZOBACTAM 3.375 GM in NORMAL SALINE 100 ML IV SCH (12:00)
--- NOTE | 2019-05-28 15:54 | RADIOLOGY REPORT (SQ) ---
EXAM DESCRIPTION: CHEST 2 VIEWS COMPLETED DATE/TIME: 05/28/2019 3:15 pm REASON FOR STUDY: crackles and wheezes on exam r/o pneumoia COMPARISON: None. TECHNIQUE: Frontal and lateral radiographic views of the chest acquired. NUMBER OF VIEWS: Two view. LIMITATIONS: None. FINDINGS: LUNGS AND PLEURA: No opacities, masses or pneumothorax. No pleural effusion. MEDIASTINUM AND HILAR STRUCTURES: No masses or contour abnormalities. HEART AND VASCULAR STRUCTURES: Heart normal size. No evidence for failure. BONES: No acute findings. HARDWARE: None in the chest. OTHER: No other significant finding. IMPRESSION: NO SIGNIFICANT RADIOGRAPHIC FINDING IN THE CHEST. TECHNICAL DOCUMENTATION: JOB ID: [id number] [employer]- All Rights Reserved Reading location - IP/workstation name: [email or web address]
[2019-05-28] MEDS ORDERED: NORMAL SALINE 250 ML IV PRN ×2 (16:31)
[2019-05-28] MEDS ORDERED: ONDANSETRON HCL INJ/PF 4 MG/2 ML SDV IV PRN (16:42)
--- NOTE | 2019-05-28 16:51 | PDOC PROGRESS REPORT ---
Subjective Progress Note for:: 05/28/19 Subjective:: This is a 24-year-old female who initially presented nausea, vomiting, abdominal pain and diarrhea. Her work-up was initially remarkable for elevated lipase and pancreatitis particularly on the pancreatic head on abdominal ultrasound. She was also found to be in acute renal failure. She was initially made n.p.o. and started on IV fluids and IV pain medications. Patient subsequently developed pancytopenia as well. Her repeat CT without contrast showed possible inflammation around iliopsoas muscles. No acute event overnight. CT of the abdomen and pelvis with IV contrast was ordered last night to reevaluate the initial findings on ultrasound and plain CT. This came back unremarkable. Upon encounter, she says she feels better today. She has tolerated clear liquid diet. Will advance diet to full liquids today. Reason For Visit: ACUTE PANCREATITIS, INTRACTABLE VOMITING, ACUTE Physical Exam Vital Signs: Temp Pulse Resp BP Pulse Ox 102.4 F H 140 H 20 137/82 H 95 05/28/19 08:16 05/28/19 08:16 05/28/19 08:16 05/28/19 08:16 05/28/19 08:16 Intake & Output 05/27/19 05/28/19 05/29/19 06:59 06:59 06:59 Intake Total 4000 4310 Output Total 1000 Balance 4000 3310 Weight 128 lb 8.472 oz 141 lb 12.116 oz General appearance: PRESENT: no acute distress, well-developed, well-nourished Head exam: PRESENT: atraumatic, normocephalic Eye exam: PRESENT: conjunctiva pink, EOMI, PERRLA. ABSENT: scleral icterus Ear exam: PRESENT: normal external ear exam Mouth exam: PRESENT: moist, tongue midline Neck exam: ABSENT: carotid bruit, JVD, lymphadenopathy, thyromegaly Respiratory exam: PRESENT: clear to auscultation kael. ABSENT: rales, rhonchi, wheezes Cardiovascular exam: PRESENT: RRR. ABSENT: diastolic murmur, rubs, systolic murmur Pulses: PRESENT: normal dorsalis pedis pul GI/Abdominal exam: PRESENT: normal bowel sounds, soft. ABSENT: distended, guarding, mass, organolmegaly, rebound, tenderness Rectal exam: PRESENT: deferred Extremities exam: PRESENT: full ROM. ABSENT: calf tenderness, clubbing, pedal edema Neurological exam: PRESENT: alert, awake, oriented to person, oriented to place, oriented to time, oriented to situation, CN II-XII grossly intact. ABSENT: motor sensory deficit Results Laboratory Results: 05/28/19 04:50 05/28/19 04:50 05/27/19 05/27/19 05/27/19 06:08 06:08 15:32 WBC 1.6 L RBC 2.87 L Hgb 7.4 L D Hct 22.3 L MCV 78 L MCH 25.6 L MCHC 33.0 RDW 14.5 H Plt Count 78 L Seg Neutrophils % Not Reportable VBG pH VBG pCO2 VBG HCO3 VBG Base Excess Sodium Potassium Chloride Carbon Dioxide Anion Gap BUN Creatinine Est GFR ( Amer) Glucose Calcium Ionized Calcium [place] Magnesium Total Bilirubin AST Alkaline Phosphatase Total Protein Albumin Amylase 465 H Lipase 1864.5 H Free T4 0.92 Free T3 pg/mL 1.76 L Stool Occult Blood 05/27/19 05/27/19 05/27/19 15:32 15:32 15:32 WBC RBC Hgb Hct MCV MCH MCHC RDW Plt Count Seg Neutrophils % VBG pH VBG pCO2 VBG HCO3 VBG Base Excess Sodium Potassium Chloride Carbon Dioxide Anion Gap BUN Creatinine Est GFR ( Amer) Glucose Calcium Ionized Calcium [place] 1.00 L Magnesium Total Bilirubin AST Alkaline Phosphatase Total Protein Albumin Amylase 422 H Lipase 1999.1 H Free T4 0.94 Free T3 pg/mL 1.30 L Stool Occult Blood 05/27/19 05/27/19 05/27/19 21:00 22:49 22:49 WBC 1.2 L* RBC 2.90 L Hgb 7.4 L Hct 22.5 L MCV 78 L MCH 25.6 L MCHC 33.0 RDW 14.5 H Plt Count 78 L Seg Neutrophils % Not Reportable VBG pH VBG pCO2 VBG HCO3 VBG Base Excess Sodium 138.8 Potassium 4.0 D Chloride 117 H Carbon Dioxide 14 L Anion Gap 8 BUN 28 H D Creatinine 1.20 Est GFR ( Amer) > 60 Glucose 98 Calcium 6.2 L* Ionized Calcium [place] Magnesium Total Bilirubin 0.2 AST 132 H Alkaline Phosphatase 25 L Total Protein 5.2 L Albumin 2.2 L Amylase Lipase Free T4 Free T3 pg/mL Stool Occult Blood NEGATIVE 05/27/19 05/28/19 05/28/19 22:49 04:50 04:50 WBC 1.3 L* RBC 2.84 L Hgb 7.3 L Hct 22.0 L MCV 78 L MCH 25.7 L MCHC 33.2 RDW 14.6 H Plt Count 77 L Seg Neutrophils % VBG pH 7.28 L VBG pCO2 33.9 L VBG HCO3 15.4 L VBG Base Excess -10.5 Sodium 138.8 Potassium 4.2 Chloride 117 H Carbon Dioxide 16 L Anion Gap 6 BUN 25 H Creatinine 1.15 Est GFR ( Amer) > 60 Glucose 98 Calcium 6.3 L* Ionized Calcium [place] Magnesium 2.1 Total Bilirubin AST Alkaline Phosphatase Total Protein Albumin Amylase 411 H Lipase 1419.1 H Free T4 Free T3 pg/mL Stool Occult Blood Impressions: Abdomen Ultrasound 05/26/19 21:34 IMPRESSION: No cholelithiasis, evidence of acute cholecystitis, or evidence of biliary obstruction. Possible pancreatitis involving the pancreatic head versus artifact producing decreased echogenicity. Abdomen/Pelvis CT 05/27/19 00:00 IMPRESSION: Mild bilateral perinephric inflammatory changes. There is indistinctness of both the right and left ileopsoas muscles with mild surrounding stranding in the retroperitoneal fat. This extends into the pelvis along the neurovascular bundles. Etiology of this is uncertain. Changes may be secondary to pyelonephritis. No focal abscess is identified on this noncontrast exam. Myositis is also a consideration. Assessment and Plan - Diagnosis (1) Acute pancreatitis Qualifiers: Pancreatitis type: unspecified pancreatitis type Acute pancreatitis complication: unspecified Qualified Code(s): K85.90 - Acute pancreatitis without necrosis or infection, unspecified Is this a current diagnosis for this admission?: Yes Plan: Lipase has been trending down. Patient denies alcohol drinking. No biliary obstruction on repeat imaging. Abdominal pain continues to improve. Repeat vitals also unremarkable. She is tolerating clear liquids. Will advance to full liquid diet. We will also check IgG4 levels. (2) Acute nontraumatic kidney injury Is this a current diagnosis for this admission?: Yes Plan: Resolving with IV fluids. (3) Pancytopenia Is this a current diagnosis for this admission?: Yes Plan: Unsure about exact etiology at the moment. We will try to reduce medications that can potentially contribute to pancytopenia. Discontinue Primaxin and Vibramycin. Switch IV antibiotics to Rocephin. Will check an anemia panel. Will give a unit of packed RBC as she has been persistently tachycardic. Will consult hematology for further recommendations. (4) UTI (urinary tract infection) Qualifiers: Urinary tract infection type: site unspecified Hematuria presence: with hematuria Qualified Code(s): N39.0 - Urinary tract infection, site not specified Is this a current diagnosis for this admission?: Yes Plan: UA did show pyuria and bacteriuria. Urine culture growing gram-negative rods so far. Switch IV antibiotics to Rocephin. (5) Hypothyroidism Is this a current diagnosis for this admission?: Yes - Plan Summary Summary: Patient is admitted to the medical floor where she will receive routine supportive and symptomatic cares. She will be treated with high-volume IV fluids utilizing D5 LR. She will receive morphine sulfate 2 to 4 mg IV every 2 hours on an as needed basis for pain control. She will receive Protonix 40 mg IV every 12 hours for stomach acid suppression. She will be on clear liquids until she can tolerate them well before advancing her diet. Her intractable vomiting will be treated with chlorpromazine 25 mg IV every 4 hours as needed. CBCs, metabolic profiles, lipase levels, amylase levels and magnesium levels be followed on a regular basis as needed. A lipid profile and a thyroid profile wi ll be obtained as part of her evaluation. - Time Time Spent with patient: 25-34 minutes
--- NOTE | 2019-05-28 17:09 | PDOC CONSULTATION ---
Consultation Consult Date: 05/28/19 Provider Consulted: [facility] Consult reason:: Hematology/Oncology consultation was requested for patient with pancytopenia. History of Present Illness Admission Date/PCP: 05/26/19 23:56 AMIRA HENDERSON MD History of Present Illness: HALLIE ROSS is a 24 year old female who states that she developed cold chills and weakness about 10 days ago. She had dizziness upon standing and diarrhea for the last 1-2 days. On admission to the hospital, she was found to have Lipase >1800 and pancytopenia. Her blood cultures have been negative, but urine culture shows gram neg rods. She was started on antibiotics and fluids. Today, she states that she is still shivering and cold. She denies nausea currently. Patient was seen early this morning on rounds. Past Medical History Cardiac Medical History: Denies: Coronary Artery Disease, Hyperlipidema, Hypertension Pulmonary Medical History: Reports: Bronchitis - 2011 Denies: Asthma, Chronic Obstructive Pulmonary Disease (COPD) EENT Medical History: Denies: Cataracts, Nose - Nasal polyps Neurological Medical History: Reports: Migraine Denies: Multiple Sclerosis, Seizures Endocrine Medical History: Denies: Diabetes Mellitus Type 1, Hyperthyroidism, Hypothyroidism Renal/ Medical History: Denies: Chronic Kidney Disease, Nephrolithiasis Malignancy Medical History: Reports: None GI Medical History: Denies: Cirrhosis, Hepatitis, Peptic Ulcer Disease Musculoskeltal Medical History: Denies: Arthritis, Fibromyalgia Skin Medical History: Reports: Other - Folliculitis Denies: Eczema, Psoriasis Psychiatric Medical History: Reports: Substance Abuse Denies: Alcohol Dependency, Tobacco Dependency Traumatic Medical History: Reports: None Hematology: Denies: Anemia, Bleeding Tendencies Infectious Medical History: Reports: None Past Surgical History Past Surgical History: Reports: None Social History Lives with: Spouse/Significant other Smoking Status: Never Smoker Electronic Cigarette use?: No Frequency of Alcohol Use: None Hx Recreational Drug Use: Yes Drugs: Marijuana Hx Prescription Drug Abuse: No - Advance Directive Resuscitation Status: Full Code Family History Family History: CVA, DM, Hypertension, Malignancy - Oral cancer. denies: CAD Parental Family History Reviewed: Yes Children Family History Reviewed: No Sibling(s) Family History Reviewed.: Yes Medication/Allergy Home Medications: No Home Medications 05/26/19 Allergies/Adverse Reactions: No Known Allergies Allergy (Verified 05/26/19 19:10) Review of Systems Constitutional: PRESENT: fever(s), weakness Eyes: ABSENT: visual disturbances Ears: ABSENT: hearing changes Nose, Mouth, and Throat: ABSENT: sore throat Cardiovascular: ABSENT: chest pain Respiratory: ABSENT: dyspnea Gastrointestinal: PRESENT: diarrhea, nausea, vomiting Genitourinary: ABSENT: dysuria Integumentary: ABSENT: rash Neurological: PRESENT: dizziness, weakness Hematologic/Lymphatic: ABSENT: easy bleeding Physical Exam Vital Signs: Temp Pulse Resp BP Pulse Ox 100.2 F 120 H 18 127/78 H 95 05/28/19 12:16 05/28/19 12:16 05/28/19 12:16 05/28/19 12:16 05/28/19 12:16 Intake & Output 05/27/19 05/28/19 05/29/19 06:59 06:59 06:59 Intake Total 4000 4310 Output Total 1000 Balance 4000 3310 Weight 58.3 kg 64.3 kg General appearance: PRESENT: no acute distress, well-developed, well-nourished Exam: 24 year old female. Head exam: PRESENT: atraumatic, normocephalic Eye exam: PRESENT: EOMI, PERRLA Mouth exam: PRESENT: tongue midline Neck exam: ABSENT: lymphadenopathy, tenderness Respiratory exam: PRESENT: unlabored, wheezes, other - Upper airway noise throughout. Cardiovascular exam: PRESENT: RRR GI/Abdominal exam: PRESENT: soft. ABSENT: tenderness Extremities exam: ABSENT: pedal edema Neurological exam: PRESENT: alert, awake Psychiatric exam: PRESENT: appropriate affect Skin exam: PRESENT: normal color Results Laboratory Results: 05/28/19 04:50 05/28/19 04:50 05/27/19 05/27/19 05/27/19 15:32 15:32 21:00 WBC 1.6 L RBC 2.87 L Hgb 7.4 L D Hct 22.3 L MCV 78 L MCH 25.6 L MCHC 33.0 RDW 14.5 H Plt Count 78 L Seg Neutrophils % Retic Count (auto) VBG pH VBG pCO2 VBG HCO3 VBG Base Excess Sodium Potassium Chloride Carbon Dioxide Anion Gap BUN Creatinine Est GFR ( Amer) Glucose Calcium Magnesium Iron TIBC % Saturation Ferritin Total Bilirubin AST Alkaline Phosphatase Total Protein Albumin Amylase Lipase Vitamin B12 Folate Free T4 0.94 Free T3 pg/mL 1.30 L Stool Occult Blood NEGATIVE 05/27/19 05/27/19 05/27/19 22:49 22:49 22:49 WBC 1.2 L* RBC 2.90 L Hgb 7.4 L Hct 22.5 L MCV 78 L MCH 25.6 L MCHC 33.0 RDW 14.5 H Plt Count 78 L Seg Neutrophils % Not Reportable Retic Count (auto) VBG pH 7.28 L VBG pCO2 33.9 L VBG HCO3 15.4 L VBG Base Excess -10.5 Sodium 138.8 Potassium 4.0 D Chloride 117 H Carbon Dioxide 14 L Anion Gap 8 BUN 28 H D Creatinine 1.20 Est GFR ( Amer) > 60 Glucose 98 Calcium 6.2 L* Magnesium Iron TIBC % Saturation Ferritin Total Bilirubin 0.2 AST 132 H Alkaline Phosphatase 25 L Total Protein 5.2 L Albumin 2.2 L Amylase Lipase Vitamin B12 Folate Free T4 Free T3 pg/mL Stool Occult Blood 05/28/19 05/28/19 05/28/19 04:50 04:50 04:50 WBC 1.3 L* RBC 2.84 L Hgb 7.3 L Hct 22.0 L MCV 78 L MCH 25.7 L MCHC 33.2 RDW 14.6 H Plt Count 77 L Seg Neutrophils % Retic Count (auto) 0.67 VBG pH VBG pCO2 VBG HCO3 VBG Base Excess Sodium 138.8 Potassium 4.2 Chloride 117 H Carbon Dioxide 16 L Anion Gap 6 BUN 25 H Creatinine 1.15 Est GFR ( Amer) > 60 Glucose 98 Calcium 6.3 L* Magnesium 2.1 Iron TIBC % Saturation Ferritin Total Bilirubin AST Alkaline Phosphatase Total Protein Albumin Amylase 411 H Lipase 1419.1 H Vitamin B12 Folate Free T4 Free T3 pg/mL Stool Occult Blood 05/28/19 04:50 WBC RBC Hgb Hct MCV MCH MCHC RDW Plt Count Seg Neutrophils % Retic Count (auto) VBG pH VBG pCO2 VBG HCO3 VBG Base Excess Sodium Potassium Chloride Carbon Dioxide Anion Gap BUN Creatinine Est GFR ( Amer) Glucose Calcium Magnesium Iron 23.0 L TIBC 188 L % Saturation 12 Ferritin 1900.00 H Total Bilirubin AST Alkaline Phosphatase Total Protein Albumin Amylase Lipase Vitamin B12 246.0 Folate 8.71 Free T4 Free T3 pg/mL Stool Occult Blood Impressions: Abdomen Ultrasound 05/26/19 21:34 IMPRESSION: No cholelithiasis, evidence of acute cholecystitis, or evidence of biliary obstruction. Possible pancreatitis involving the pancreatic head versus artifact producing decreased echogenicity. Abdomen/Pelvis CT 05/28/19 00:00 IMPRESSION: NO SIGNIFICANT OR ACUTE FINDINGS IN THE ABDOMEN OR PELVIS. Chest X-Ray 05/28/19 00:00 IMPRESSION: NO SIGNIFICANT RADIOGRAPHIC FINDING IN THE CHEST. Status: Image reviewed by me Assessment & Plan - Diagnosis (1) Acute pancreatitis Qualifiers: Pancreatitis type: unspecified pancreatitis type Acute pancreatitis complication: unspecified Qualified Code(s): K85.90 - Acute pancreatitis without necrosis or infection, unspecified Is this a current diagnosis for this admission?: Yes Plan: Lipase slowly coming down with bowel rest. CT A/P today was unremarkable. (2) Hypotension due to hypovolemia Is this a current diagnosis for this admission?: Yes Plan: Improving with fluids. (3) Pancytopenia Is this a current diagnosis for this admission?: Yes Plan: Unclear as to the cause. Her blood smears show significant rouleaux formation. Current antibiotics may also be contributing to this. I agree with plans to change to IV Rocephin. I discussed her care with Dr. Phillips and agree with plans for pRBC transfusion. (4) Sepsis Qualifiers: Sepsis type: sepsis due to unspecified organism Qualified Code(s): A41.9 - Sepsis, unspecified organism Is this a current diagnosis for this admission?: Yes Plan: Clinically, she appears to have sepsis from an unknown source. Agree with cu rrent therapy. - Plan Summary Plan Summary: Thank you for this consultation. I will continue to follow her with you. Please call with any concerns.
[2019-05-28] MEDS ORDERED: METHYLPREDNISOLONE INJ 125 MG/2 ML SDV IV ONE (20:02)
[2019-05-28] MEDS ORDERED: METHYLPREDNISOLONE INJ 125 MG/2 ML SDV IV SCH (20:15)
[2019-05-28] MEDS ORDERED: METOPROLOL TARTRATE PF/INJ 5 MG/5 ML SDV IV ONE (22:30)
[2019-05-28] MEDS: MORPHINE SULFATE 10 MG/ML INJ IV PRN (22:42)
[2019-05-29] MEDS: HEPARIN SOD (PORCINE) 5,000 UNIT/ML 1 ML VIAL SUBCUT SCH ×3 (06:00→21:22)
[2019-05-29] MEDS: DEXTROSE 5%-NORMAL SALINE 1,000 ML IV PRN ×2 (06:08→17:51)
[2019-05-29 08:07] LABS: AMYLASE 468 U/L (30-110); ANION GAP 7 (5-19); BLOOD UREA NITROGEN 17 mg/dL (7-20); CARBON DIOXIDE 14 mmol/L (22-30); CHLORIDE 120 mmol/L (98-107); GLUCOSE 118 mg/dL (75-110); POTASSIUM 4.6 mmol/L (3.6-5.0)
[2019-05-29 08:24] LABS: CALCIUM 6.6 mg/dL (8.4-10.2)
[2019-05-29] MEDS: METOCLOPRAMIDE HCL INJ/PF 10 MG/2 ML SDV IV SCH ×4 (08:30→21:22)
[2019-05-29] MEDS: PANTOPRAZOLE SODIUM 40 MG VIAL IV SCH ×2 (09:41→21:21)
[2019-05-29] MEDS: PREDNISONE 20 MG TABLET PO SCH (09:41)
[2019-05-29] MEDS: CALAMINE/ZINC OXIDE LOTION 177 ML/BOTTLE TP SCH ×4 (09:42→21:26)
[2019-05-29] MEDS: CEFTRIAXONE 1 GM/D5W RTU 1 GM/50 ML RTUPB IV SCH (09:42)
[2019-05-29 10:09] LABS: ABSOLUTE LYMPHOCYTES (AUTO) 0.2 10^3/uL (0.5-4.7); ABSOLUTE NEUT (AUTO) 0.7 10^3/uL (1.7-8.2); BASOPHILS % (AUTO) 0.5 % (0-2); EOSINOPHILS % (AUTO) 0.1 % (0-6); LYMPHOCYTES % (AUTO) 18.5 % (13-45); MEAN CORPUSCULAR HEMOGLOBIN 25.3 pg (27.0-33.4); MEAN CORPUSCULAR HGB CONC 32.8 g/dL (32.0-36.0); MEAN CORPUSCULAR VOLUME 77 fl (80-97); RED BLOOD COUNT 2.86 10^6/uL (3.72-5.28); RED CELL DISTRIBUTION WIDTH 14.8 % (11.5-14.0); SEGMENTED NEUTROPHILS % (AUTO) 77.9 % (42-78); TOTAL CELLS COUNTED % (AUTO) 100 %
[2019-05-29] MEDS: MORPHINE SULFATE 10 MG/ML INJ IV PRN ×2 (10:24→21:22)
[2019-05-29 10:56] LABS: PLATELET COUNT 58 10^3/uL (150-450)
[2019-05-29 10:58] LABS: ANISOCYTOSIS SLIGHT; HYPOCHROMASIA SLIGHT; OVALOCYTES 1+; PLATELET COMMENT DECREASED; POIKILOCYTOSIS 1+; SCHISTOCYTES SLIGHT; TEAR DROP CELLS SLIGHT
[2019-05-29 11:18] LABS: WHITE BLOOD COUNT 0.9 10^3/uL (4.0-10.5)
[2019-05-29 11:19] LABS: HEMOGLOBIN 7.2 g/dL (12.0-15.5)
--- NOTE | 2019-05-29 15:14 | PDOC PROGRESS REPORT ---
Subjective Progress Note for:: 05/29/19 Subjective:: This is a 24-year-old female who initially presented nausea, vomiting, abdominal pain and diarrhea. Her work-up was initially remarkable for elevated lipase and pancreatitis particularly on the pancreatic head on abdominal ultrasound. She was also found to be in acute renal failure. She was initially made n.p.o. and started on IV fluids and IV pain medications. Patient subsequently developed pancytopenia as well. Her repeat CT without contrast showed possible inflammation around iliopsoas muscles. 05/28: No acute event overnight. CT of the abdomen and pelvis with IV contrast was ordered last night to reevaluate the initial findings on ultrasound and plai n CT. This came back unremarkable. Upon encounter, she says she feels better today. She has tolerated clear liquid diet. Will advance diet to full liquids today. 05/29: Patient tolerated clear liquid diet. Will advance to soft diet today. She says her abdominal pain continued to improve however she reports she had 2 episodes of loose stools early this morning. Her WBC significantly trended down overnight. Platelet also significantly trended down. Hemoglobin remained stable at 7.2. Will send for stool studies. Will also place patient on neutropenic precautions. pRBC transfusion held as her LDH did come back elevated. Reason For Visit: ACUTE PANCREATITIS, INTRACTABLE VOMITING, ACUTE Physical Exam Vital Signs: Temp Pulse Resp BP Pulse Ox 98.1 F 104 H 20 144/77 H 98 05/29/19 08:03 05/29/19 08:03 05/29/19 08:03 05/29/19 08:03 05/29/19 08:03 Intake & Output 05/28/19 05/29/19 05/30/19 06:59 06:59 06:59 Intake Total 4310 2592 Output Total 1000 Balance 3310 2592 Weight 141 lb 12.116 oz 143 lb 4.807 oz General appearance: PRESENT: no acute distress, well-developed, well-nourished Head exam: PRESENT: atraumatic, normocephalic Eye exam: PRESENT: conjunctiva pink, EOMI, PERRLA. ABSENT: scleral icterus Ear exam: PRESENT: normal external ear exam Mouth exam: PRESENT: moist, tongue midline Neck exam: ABSENT: carotid bruit, JVD, lymphadenopathy, thyromegaly Respiratory exam: PRESENT: clear to auscultation kael. ABSENT: rales, rhonchi, wheezes Cardiovascular exam: PRESENT: RRR. ABSENT: diastolic murmur, rubs, systolic murmur Pulses: PRESENT: normal dorsalis pedis pul GI/Abdominal exam: PRESENT: normal bowel sounds, soft. ABSENT: distended, guarding, mass, organolmegaly, rebound, tenderness Rectal exam: PRESENT: deferred Extremities exam: PRESENT: full ROM. ABSENT: calf tenderness, clubbing, pedal edema Neurological exam: PRESENT: alert, awake, oriented to person, oriented to place, oriented to time, oriented to situation, CN II-XII grossly intact. ABSENT: motor sensory deficit Results Laboratory Results: 05/29/19 09:55 05/29/19 07:00 05/28/19 05/29/19 05/29/19 17:00 07:00 07:00 WBC Cancelled RBC Cancelled Hgb Cancelled Hct Cancelled MCV Cancelled MCH Cancelled MCHC Cancelled RDW Cancelled Plt Count Cancelled Seg Neutrophils % Cancelled Sodium 141.1 Potassium 4.6 Chloride 120 H Carbon Dioxide 14 L Anion Gap 7 BUN 17 Creatinine 1.10 Est GFR ( Amer) > 60 Glucose 118 H Calcium 6.6 L* Magnesium 2.0 Amylase 468 H Lipase 1309.3 H Blood Type A POSITIVE Antibody Screen NEGATIVE 05/29/19 09:55 WBC 0.9 L* RBC 2.86 L Hgb 7.2 L Hct 22.0 L MCV 77 L MCH 25.3 L MCHC 32.8 RDW 14.8 H Plt Count 58 L Seg Neutrophils % 77.9 Sodium Potassium Chloride Carbon Dioxide Anion Gap BUN Creatinine Est GFR ( Amer) Glucose Calcium Magnesium Amylase Lipase Blood Type Antibody Screen 05/27/19 21:00 Clean Catch Midstream Urine Culture - Final 5,000 col/ml Impressions: Abdomen Ultrasound 05/26/19 21:34 IMPRESSION: No cholelithiasis, evidence of acute cholecystitis, or evidence of biliary obstruction. Possible pancreatitis involving the pancreatic head versus artifact producing decreased echogenicity. Abdomen/Pelvis CT 05/28/19 00:00 IMPRESSION: NO SIGNIFICANT OR ACUTE FINDINGS IN THE ABDOMEN OR PELVIS. Chest X-Ray 05/28/19 00:00 IMPRESSION: NO SIGNIFICANT RADIOGRAPHIC FINDING IN THE CHEST. Assessment and Plan - Diagnosis (1) Acute pancreatitis Qualifiers: Pancreatitis type: unspecified pancreatitis type Acute pancreatitis complication: unspecified Qualified Code(s): K85.90 - Acute pancreatitis without necrosis or infection, unspecified Is this a current diagnosis for this admission?: Yes Plan: 05/28: Lipase has been trending down. Patient denies alcohol drinking. No biliary obstruction on repeat imaging. Abdominal pain continues to improve. Repeat vitals also unremarkable. She is tolerating clear liquids. Will advance to full liquid diet. We will also check IgG4 levels. 05/29: Improving. (2) Pancytopenia Is this a current diagnosis for this admission?: Yes Plan: 05/28: Unsure about exact etiology at the moment. We will try to reduce medications that can potentially contribute to pancytopenia. Discontinue Primaxin and Vibramycin. Switch IV antibiotics to Rocephin. Will check an anemia panel. Will give a unit of packed RBC as she has been persistently tachycardic. Will consult hematology for further recommendations. 05/29: Her WBC significantly trended down overnight. Platelet also signi ficantly trended down. Hemoglobin remained stable at 7.2. Will also place patient on neutropenic precautions. pRBC transfusion held as her LDH did come back elevated. Started on prednisone 60 mg daily per hematology recommendations. (3) Acute nontraumatic kidney injury Is this a current diagnosis for this admission?: Yes Plan: Resolved with IV fluids. (4) UTI (urinary tract infection) Qualifiers: Urinary tract infection type: site unspecified Hematuria presence: with hematuria Qualified Code(s): N39.0 - Urinary tract infection, site not specified Is this a current diagnosis for this admission?: Yes Plan: 05/28: UA did show pyuria and bacteriuria. Urine culture growing gram-negative rods so far. Switch IV antibiotics to Rocephin. (5) Hypothyroidism Is this a current diagnosis for this admission?: Yes - Plan Summary Summary: Patient is admitted to the medical floor where she will receive routine supportive and symptomatic cares. She will be treated with high-volume IV fluids utilizing D5 LR. She will receive morphine sulfate 2 to 4 mg IV every 2 hours on an as needed basis for pain control. She will receive Protonix 40 mg IV every 12 hours for stomach acid suppression. She will be on clear liquids until she can tolerate them well before advancing her diet. Her intractable vomiting will be treated with chlorpromazine 25 mg IV every 4 hours as needed. CBCs, metabolic profiles, lipase levels, amylase levels and magnesium levels be followed on a regular basis as needed. A lipid profile and a thyroid profile will be obtained as part of her evaluation. - Time Time Spent with patient: 25-34 minutes
[2019-05-30 05:16] LABS: HEMATOCRIT 19.9 % (36.0-47.0); MEAN CORPUSCULAR HEMOGLOBIN 25.8 pg (27.0-33.4); MEAN CORPUSCULAR HGB CONC 33.7 g/dL (32.0-36.0); MEAN CORPUSCULAR VOLUME 76 fl (80-97); RED CELL DISTRIBUTION WIDTH 14.7 % (11.5-14.0)
[2019-05-30 05:31] LABS: AMYLASE 402 U/L (30-110); ANION GAP 8 (5-19); BLOOD UREA NITROGEN 19 mg/dL (7-20); CARBON DIOXIDE 15 mmol/L (22-30); CHLORIDE 118 mmol/L (98-107); GLUCOSE 125 mg/dL (75-110); POTASSIUM 4.2 mmol/L (3.6-5.0)
[2019-05-30 05:40] LABS: CALCIUM 6.4 mg/dL (8.4-10.2)
[2019-05-30 05:44] LABS: WHITE BLOOD COUNT 2.3 10^3/uL (4.0-10.5)
[2019-05-30] MEDS: HEPARIN SOD (PORCINE) 5,000 UNIT/ML 1 ML VIAL SUBCUT SCH ×3 (05:46→21:12)
[2019-05-30] MEDS: DEXTROSE 5%-NORMAL SALINE 1,000 ML IV PRN (05:46)
[2019-05-30 05:49] LABS: HEMOGLOBIN 6.7 g/dL (12.0-15.5)
[2019-05-30 05:50] LABS: PLATELET COUNT 73 10^3/uL (150-450)
[2019-05-30] MEDS ORDERED: NORMAL SALINE 250 ML IV PRN (06:55)
[2019-05-30] MEDS: PANTOPRAZOLE SODIUM 40 MG VIAL IV SCH ×2 (09:29→21:29)
[2019-05-30] MEDS: CEFTRIAXONE 1 GM/D5W RTU 1 GM/50 ML RTUPB IV SCH (09:29)
[2019-05-30] MEDS: PREDNISONE 20 MG TABLET PO SCH (09:29)
[2019-05-30] MEDS: METOCLOPRAMIDE HCL INJ/PF 10 MG/2 ML SDV IV SCH ×4 (09:29→21:28)
[2019-05-30] MEDS: CALAMINE/ZINC OXIDE LOTION 177 ML/BOTTLE TP SCH ×4 (09:35→21:11)
[2019-05-30] MEDS: MORPHINE SULFATE 10 MG/ML INJ IV PRN ×3 (09:44→21:59)
--- NOTE | 2019-05-30 12:53 | PDOC PROGRESS REPORT ---
Subjective Progress Note for:: 05/30/19 Subjective:: Patient was seen early this morning on rounds. Patient talkative, sitting up in bed. Still with some abdominal pain, but improving. ROS: No Dyspnea, No chest pain. Overall, feels better. Reason For Visit: ACUTE PANCREATITIS, INTRACTABLE VOMITING, ACUTE Physical Exam Vital Signs: Temp Pulse Resp BP Pulse Ox 97.7 F 103 H 20 134/73 H 96 05/30/19 07:41 05/30/19 07:41 05/30/19 07:41 05/30/19 07:41 05/30/19 07:41 Intake & Output 05/29/19 05/30/19 05/31/19 06:59 06:59 06:59 Intake Total 2592 1050 50 Output Total 400 Balance 2592 650 50 Weight 65 kg 58.7 kg 58.7 kg General appearance: PRESENT: no acute distress, well-developed, well-nourished Head exam: PRESENT: normocephalic Respiratory exam: PRESENT: wheezes Cardiovascular exam: PRESENT: RRR Neurological exam: PRESENT: alert, awake Psychiatric exam: PRESENT: appropriate affect Skin exam: PRESENT: normal color Results Laboratory Results: 05/30/19 04:24 05/30/19 04:24 05/28/19 05/30/19 05/30/19 17:00 04:24 04:24 WBC 2.3 L D RBC 2.60 L Hgb 6.7 L Hct 19.9 L MCV 76 L MCH 25.8 L MCHC 33.7 RDW 14.7 H Plt Count 73 L Sodium 141.0 Potassium 4.2 Chloride 118 H Carbon Dioxide 15 L Anion Gap 8 BUN 19 Creatinine 0.93 Est GFR ( Amer) > 60 Glucose 125 H Calcium 6.4 L* Magnesium 1.7 Amylase 402 H Lipase 1201.3 H Stool for White Cells Blood Type A POSITIVE Antibody Screen NEGATIVE 05/30/19 10:00 WBC RBC Hgb Hct MCV MCH MCHC RDW Plt Count Sodium Potassium Chloride Carbon Dioxide Anion Gap BUN Creatinine Est GFR ( Amer) Glucose Calcium Magnesium Amylase Lipase Stool for White Cells NO WBCs SEEN Blood Type Antibody Screen Impressions: Abdomen Ultrasound 05/26/19 21:34 IMPRESSION: No cholelithiasis, evidence of acute cholecystitis, or evidence of biliary obstruction. Possible pancreatitis involving the pancreatic head versus artifact producing decreased echogenicity. Abdomen/Pelvis CT 05/28/19 00:00 IMPRESSION: NO SIGNIFICANT OR ACUTE FINDINGS IN THE ABDOMEN OR PELVIS. Chest X-Ray 05/28/19 00:00 IMPRESSION: NO SIGNIFICANT RADIOGRAPHIC FINDING IN THE CHEST. Assessment & Plan - Diagnosis (1) Acute pancreatitis Qualifiers: Pancreatitis type: unspecified pancreatitis type Acute pancreatitis complication: unspecified Qualified Code(s): K85.90 - Acute pancreatitis without necrosis or infection, unspecified Is this a current diagnosis for this admission?: Yes Plan: Lipase improving. (2) Hypotension due to hypovolemia Is this a current diagnosis for this admission?: Yes Plan: Resolved (3) Pancytopenia Is this a current diagnosis for this admission?: Yes Plan: Her WBC and PLTs are now improving. Steroids were started last night. Pathologist reviewed smear again today. Only a few schistocytes. No evidence of TTP. I have ordered 2 units pRBCs today. Continue steroids for now. (4) Sepsis Qualifiers: Sepsis type: sepsis due to unspecified organism Qualified Code(s): A41.9 - Sepsis, unspecified organism Is this a current diagnosis for this admission?: Yes Plan: Improving. - Time Time Spent with patient: 15-24 minutes - Plan Summary Plan Summary: I will continue to follow her with you. Please call with any concerns.
--- NOTE | 2019-05-30 15:16 | PDOC PROGRESS REPORT ---
Subjective Progress Note for:: 05/30/19 Subjective:: This is a 24-year-old female who initially presented nausea, vomiting, abdominal pain and diarrhea. Her work-up was initially remarkable for elevated lipase and pancreatitis particularly on the pancreatic head on abdominal ultrasound. She was also found to be in acute renal failure. She was initially made n.p.o. and started on IV fluids and IV pain medications. Patient subsequently developed pancytopenia as well. Her repeat CT without contrast showed possible inflammation around iliopsoas muscles. 05/28: No acute event overnight. CT of the abdomen and pelvis with IV contrast was ordered last night to reevaluate the initial findings on ultrasound and plai n CT. This came back unremarkable. Upon encounter, she says she feels better today. She has tolerated clear liquid diet. Will advance diet to full liquids today. 05/29: Patient tolerated clear liquid diet. Will advance to soft diet today. She says her abdominal pain continued to improve however she reports she had 2 episodes of loose stools early this morning. Her WBC significantly trended down overnight. Platelet also significantly trended down. Hemoglobin remained stable at 7.2. Will send for stool studies. Will also place patient on neutropenic precautions. pRBC transfusion held as her LDH did come back elevated. 05/30: Patient's hemoglobin trended down to 6.7 this morning. Hematology has ordered 2 units of packed RBCs. Upon encounter, she appears comfortable. She says she still has occasional chills from time to time. She says her abdominal pain continued to improve. She. He tolerated well a regular diet this morning. She denies prior diagnosis of SLE or autoimmune disease. Her pancytopenia, acute renal failure and pancreatitis raises the possibility of an autoimmune process like SLE. Her IgG4 level did come back elevated. Will send for JAMES antibodies with reflex and anti-dsDNA. Reason For Visit: ACUTE PANCREATITIS, INTRACTABLE VOMITING, ACUTE Physical Exam Vital Signs: Temp Pulse Resp BP Pulse Ox 97.8 F 112 H 20 147/85 H 98 05/30/19 12:20 05/30/19 12:20 05/30/19 12:20 05/30/19 12:20 05/30/19 12:20 Intake & Output 05/29/19 05/30/19 05/31/19 06:59 06:59 06:59 Intake Total 2592 1050 508 Output Total 400 Balance 2592 650 508 Weight 143 lb 4.807 oz 129 lb 6.581 oz 129 lb 6.581 oz General appearance: PRESENT: no acute distress, well-developed, well-nourished Head exam: PRESENT: atraumatic, normocephalic Eye exam: PRESENT: conjunctiva pink, EOMI, PERRLA. ABSENT: scleral icterus Ear exam: PRESENT: normal external ear exam Mouth exam: PRESENT: moist, tongue midline Neck exam: ABSENT: carotid bruit, JVD, lymphadenopathy, thyromegaly Respiratory exam: PRESENT: clear to auscultation kael. ABSENT: rales, rhonchi, wheezes Cardiovascular exam: PRESENT: RRR. ABSENT: diastolic murmur, rubs, systolic murmur Pulses: PRESENT: normal dorsalis pedis pul GI/Abdominal exam: PRESENT: normal bowel sounds, soft. ABSENT: distended, guarding, mass, organolmegaly, rebound, tenderness Rectal exam: PRESENT: deferred Extremities exam: PRESENT: full ROM. ABSENT: calf tenderness, clubbing, pedal edema Neurological exam: PRESENT: alert, awake, oriented to person, oriented to place, oriented to time, oriented to situation, CN II-XII grossly intact. ABSENT: motor sensory deficit Results Laboratory Results: 05/30/19 04:24 05/30/19 04:24 05/28/19 05/30/19 05/30/19 17:00 04:24 04:24 WBC 2.3 L D RBC 2.60 L Hgb 6.7 L Hct 19.9 L MCV 76 L MCH 25.8 L MCHC 33.7 RDW 14.7 H Plt Count 73 L Sodium 141.0 Potassium 4.2 Chloride 118 H Carbon Dioxide 15 L Anion Gap 8 BUN 19 Creatinine 0.93 Est GFR ( Amer) > 60 Glucose 125 H Calcium 6.4 L* Magnesium 1.7 Amylase 402 H Lipase 1201.3 H Stool for White Cells Blood Type A POSITIVE Antibody Screen NEGATIVE 05/30/19 10:00 WBC RBC Hgb Hct MCV MCH MCHC RDW Plt Count Sodium Potassium Chloride Carbon Dioxide Anion Gap BUN Creatinine Est GFR ( Amer) Glucose Calcium Magnesium Amylase Lipase Stool for White Cells NO WBCs SEEN Blood Type Antibody Screen Impressions: Abdomen Ultrasound 05/26/19 21:34 IMPRESSION: No cholelithiasis, evidence of acute cholecystitis, or evidence of biliary obstruction. Possible pancreatitis involving the pancreatic head versus artifact producing decreased echogenicity. Abdomen/Pelvis CT 05/28/19 00:00 IMPRESSION: NO SIGNIFICANT OR ACUTE FINDINGS IN THE ABDOMEN OR PELVIS. Chest X-Ray 05/28/19 00:00 IMPRESSION: NO SIGNIFICANT RADIOGRAPHIC FINDING IN THE CHEST. Assessment and Plan - Diagnosis (1) Acute pancreatitis Qualifiers: Pancreatitis type: unspecified pancreatitis type Acute pancreatitis complication: unspecified Qualified Code(s): K85.90 - Acute pancreatitis without necrosis or infection, unspecified Is this a current diagnosis for this admission?: Yes Plan: 05/28: Lipase has been trending down. Patient denies alcohol drinking. No biliary obstruction on repeat imaging. Abdominal pain continues to improve. Repeat vitals also unremarkable. She is tolerating clear liquids. Will advance to full liquid diet. We will also check IgG4 levels. 05/29: Improving. 05/30: Tolerating advanced diet. (2) Pancytopenia Is this a current diagnosis for this admission?: Yes Plan: 05/28: Unsure about exact etiology at the moment. We will try to reduce medications that can potentially contribute to pancytopenia. Discontinue Primaxin and Vibramycin. Switch IV antibiotics to Rocephin. Will check an anemia panel. Will give a unit of packed RBC as she has been persistently tachycardic. Will consult hematology for further recommendations. 05/29: Her WBC significantly trended down overnight. Platelet also significantly trended down. Hemoglobin remained stable at 7.2. Will also place patient on neutropenic precautions. pRBC transfusion held as her LDH did come back elevated. Started on prednisone 60 mg daily per hematology recommendations. 05/30: Hb trended down to 6.7. She will be getting 2 u of pRBCs. (3) Acute nontraumatic kidney injury Is this a current diagnosis for this admission?: Yes Plan: Resolved with IV fluids. (4) UTI (urinary tract infection) Qualifiers: Urinary tract infection type: site unspecified Hematuria presence: with hematuria Qualified Code(s): N39.0 - Urinary tract infection, site not specified Is this a current diagnosis for this admission?: Yes Plan: 05/28: UA did show pyuria and bacteriuria. Urine culture growing gram-negative rods so far. Switch IV antibiotics to Rocephin. (5) Hypothyroidism Is this a current diagnosis for this admission?: Yes - Plan Summary Summary: Patient is admitted to the medical floor where she will receive routine supportive and symptomatic cares. She will be treated with high-volume IV fluids utilizing D5 LR. She will receive morphine sulfate 2 to 4 mg IV every 2 hours on an as needed basis for pain control. She will receive Protonix 40 mg IV every 12 hours for stomach acid suppression. She will be on clear liquids until she can tolerate them well before advancing her diet. Her intractable vomiting will be treated with chlorpromazine 25 mg IV every 4 hours as needed. CBCs, metabolic profiles, lipase levels, amylase levels and magnesium levels be followed on a regular basis as needed. A lipid profile and a thyroid profile will be obtained as part of her evaluation. - Time Time Spent with patient: 25-34 minutes
[2019-05-30 18:22] LABS: UR PRO/CREAT RATIO RESULT 1.6 mg/mg (0.0-0.2); URINE CREATININE 69.2 mg/dL (16-327); URINE PROTEIN 111.2 mg/dL (<12)
[2019-05-31 00:36] LABS: ABSOLUTE LYMPHOCYTES (AUTO) 0.5 10^3/uL (0.5-4.7); ABSOLUTE MONOCYTES (AUTO) 0.2 10^3/uL (0.1-1.4); ABSOLUTE NEUT (AUTO) 4.3 10^3/uL (1.7-8.2); BASOPHILS % (AUTO) 0.2 % (0-2); HEMATOCRIT 29.7 % (36.0-47.0); MEAN CORPUSCULAR HEMOGLOBIN 27.4 pg (27.0-33.4); MEAN CORPUSCULAR HGB CONC 34.1 g/dL (32.0-36.0); RED CELL DISTRIBUTION WIDTH 15.3 % (11.5-14.0); SEGMENTED NEUTROPHILS % (AUTO) 84.8 % (42-78); TOTAL CELLS COUNTED % (AUTO) 100 %
[2019-05-31] MEDS: LORAZEPAM INJ 2 MG/1 ML VIAL IV PRN ×2 (01:03→06:08)
[2019-05-31 01:06] LABS: HEMOGLOBIN 10.1 g/dL (12.0-15.5); MEAN CORPUSCULAR VOLUME 80 fl (80-97)
[2019-05-31 01:07] LABS: PLATELET COUNT 84 10^3/uL (150-450)
[2019-05-31] MEDS: HEPARIN SOD (PORCINE) 5,000 UNIT/ML 1 ML VIAL SUBCUT SCH ×2 (05:02→13:07)
[2019-05-31] MEDS: MORPHINE SULFATE 10 MG/ML INJ IV PRN ×2 (07:57→18:28)
[2019-05-31] MEDS: METOCLOPRAMIDE HCL INJ/PF 10 MG/2 ML SDV IV SCH ×4 (07:57→22:57)
--- NOTE | 2019-05-31 08:29 | PDOC PROGRESS REPORT ---
Subjective Progress Note for:: 05/31/19 Subjective:: Patient states that she is feeling a bit better. Still having shaking chills. Eating some. Had an episode of blood tinged sputum. ROS: Denies dyspnea. Has mild abdominal pain. Walking to the bathroom on her own, but has not been out of her room. Reason For Visit: ACUTE PANCREATITIS, INTRACTABLE VOMITING, ACUTE Physical Exam Vital Signs: Temp Pulse Resp BP Pulse Ox 97.8 F 90 18 132/86 H 93 05/30/19 22:09 05/30/19 22:09 05/30/19 22:09 05/30/19 22:09 05/30/19 22:09 Intake & Output 05/30/19 05/31/19 06/01/19 06:59 06:59 06:59 Intake Total 1050 2003 Output Total 400 2 Balance 650 2001 Weight 58.7 kg 58.7 kg General appearance: PRESENT: well-developed, well-nourished Head exam: PRESENT: normocephalic Respiratory exam: PRESENT: clear to auscultation kael, unlabored Cardiovascular exam: PRESENT: RRR Neurological exam: PRESENT: alert, awake Psychiatric exam: PRESENT: appropriate affect Skin exam: PRESENT: normal color Results Laboratory Results: 05/31/19 00:26 05/30/19 04:24 05/28/19 05/30/19 05/31/19 17:00 10:00 00:26 WBC 5.0 D RBC 3.70 L Hgb 10.1 L D Hct 29.7 L MCV 80 D MCH 27.4 MCHC 34.1 RDW 15.3 H Plt Count 84 L Seg Neutrophils % 84.8 H Stool for White Cells NO WBCs SEEN Blood Type A POSITIVE Antibody Screen NEGATIVE Impressions: Abdomen Ultrasound 05/26/19 21:34 IMPRESSION: No cholelithiasis, evidence of acute cholecystitis, or evidence of biliary obstruction. Possible pancreatitis involving the pancreatic head versus artifact producing decreased echogenicity. Abdomen/Pelvis CT 05/28/19 00:00 IMPRESSION: NO SIGNIFICANT OR ACUTE FINDINGS IN THE ABDOMEN OR PELVIS. Chest X-Ray 05/28/19 00:00 IMPRESSION: NO SIGNIFICANT RADIOGRAPHIC FINDING IN THE CHEST. Assessment & Plan - Diagnosis (1) Acute pancreatitis Qualifiers: Pancreatitis type: unspecified pancreatitis type Acute pancreatitis co mplication: unspecified Qualified Code(s): K85.90 - Acute pancreatitis without necrosis or infection, unspecified Is this a current diagnosis for this admission?: Yes Plan: As per primary team. Lipase looks better. May be autoimmune. (2) Hypotension due to hypovolemia Is this a current diagnosis for this admission?: Yes (3) Pancytopenia Is this a current diagnosis for this admission?: Yes Plan: Much improved today after steroids and pRBC transfusions. She is no longer neutropenic, so I will DC neutropenic precautions. (4) Sepsis Qualifiers: Sepsis type: sepsis due to unspecified organism Qualified Code(s): A41.9 - Sepsis, unspecified organism Is this a current diagnosis for this admission?: Yes - Time Time Spent with patient: 15-24 minutes - Plan Summary Plan Summary: Dr. Blank to cover over the weekend. Please call if needed. Once all blood counts back to normal, then consider a slow steroid taper as outpatient. I will be happy to continue to follow her for this.
[2019-05-31] MEDS: CALAMINE/ZINC OXIDE LOTION 177 ML/BOTTLE TP SCH ×4 (09:45→22:58)
[2019-05-31] MEDS: CEFTRIAXONE 1 GM/D5W RTU 1 GM/50 ML RTUPB IV SCH (09:45)
[2019-05-31] MEDS: PANTOPRAZOLE SODIUM 40 MG VIAL IV SCH ×2 (09:45→22:57)
[2019-05-31] MEDS: PREDNISONE 20 MG TABLET PO SCH (09:45)
[2019-05-31] MEDS: DEXTROSE 5%-NORMAL SALINE 1,000 ML IV PRN (10:41)
[2019-05-31 11:37] LABS: HEPATITS B SURFACE ANTIGEN Negative (Negative)
[2019-05-31 11:38] LABS: HEPATITIS C VIRUS ANTIBODY <0.1 s/co ratio (0.0-0.9)
[2019-05-31] MEDS ORDERED: IPRATROPIUM/ALBUTEROL 0.5-2.5 MG/3 ML AMPUL NEB PRN (12:01)
[2019-05-31] MEDS ORDERED: FUROSEMIDE INJ/PF 40 MG/4 ML SDV IV ONE (12:30)
--- NOTE | 2019-05-31 13:34 | RADIOLOGY REPORT (SQ) ---
EXAM DESCRIPTION: CT CHEST WITHOUT COMPLETED DATE/TIME: 05/31/2019 12:47 pm REASON FOR STUDY: hemoptysis COMPARISON: PA and lateral views of the chest from 05/28/2019. TECHNIQUE: CT scan performed of the chest without intravenous contrast. Images reviewed with lung, soft tissue and bone windows. Reconstructed coronal and sagittal MPR images reviewed. All images st ored on PACS. All CT scanners at this facility use dose modulation, iterative reconstruction, and/or weight based d osing when appropriate to reduce radiation dose to as low as reasonably achievable (ALARA). [facility]: Dose Right [facility]: CareDose [facility]: Dose Right [facility]: Teradose 4D [facility]: Kindful RADIATION DOSE: CT Rad equipment meets quality standard of care and radiation dose reduction techniq ues were employed. CTDIvol: 4.5 mGy. DLP: 176 mGy-cm. LIMITATIONS: No technical limitations. FINDINGS: LUNGS AND PLEURA: The trachea and main bronchi are patent. There are acute asymmetric cortney und-glass opacities and areas of consolidation in a perihilar distribution associated with interlobul ar septal thickening. There is a small volume of fluid in the pleural spaces. There is no mass or p neumothorax. HILAR AND MEDIASTINAL STRUCTURES: Evaluation is limited due to the absence of intravenous contrast. HEART AND VASCULAR STRUCTURES: No aneurysm of the abdominal aorta. No cardiomegaly or pericardial ef fusion. UPPER ABDOMEN: No acute findings. THYROID AND OTHER SOFT TISSUES: No masses or adenopathy. BONES: No acute findings. HARDWARE: None in the chest. OTHER: No other findings. IMPRESSION: Acute asymmetric ground-glass opacities and areas of consolidation in a perihilar distri bution associated with interlobular septal thickening. The differential considerations include pneum onia, cardiogenic and noncardiogenic edema, diffuse alveolar hemorrhage, and pulmonary alveolar prote inosis. TECHNICAL DOCUMENTATION: JOB ID: [id number] Quality ID # [id number]: Final reports with documentation of one or more dose reduction techniques (e.g., Au tomated exposure control, adjustment of the mA and/or kV according to patient size, use of iterative reconstruction technique) 2010 [employer]- All Rights Reserved Reading location - IP/workstation name: [email or web address]
[2019-05-31 13:37] LABS: ANTINUCLEAR ANTIBODIES Positive (Negative); SJOGREN'S ANTI-SS-B AB <0.2 AI (0.0-0.9); SJOGREN'S SS-A ANTIBODY <0.2 AI (0.0-0.9); SMITH AB ANA 0.4 AI (0.0-0.9)
[2019-05-31 14:16] LABS: DNA DOUBLE STRAND ANTIBODY ANA >300 IU/mL (0-9)
--- NOTE | 2019-05-31 15:34 | PDOC PROGRESS REPORT ---
Subjective Progress Note for:: 05/31/19 Subjective:: This is a 24-year-old female who initially presented nausea, vomiting, abdominal pain and diarrhea. Her work-up was initially remarkable for elevated lipase and pancreatitis particularly on the pancreatic head on abdominal ultrasound. She was also found to be in acute renal failure. She was initially made n.p.o. and started on IV fluids and IV pain medications. Patient subsequently developed pancytopenia as well. Her repeat CT without contrast showed possible inflammation around iliopsoas muscles. 05/28: No acute event overnight. CT of the abdomen and pelvis with IV contrast was ordered last night to reevaluate the initial findings on ultrasound and plai n CT. This came back unremarkable. Upon encounter, she says she feels better today. She has tolerated clear liquid diet. Will advance diet to full liquids today. 05/29: Patient tolerated clear liquid diet. Will advance to soft diet today. She says her abdominal pain continued to improve however she reports she had 2 episodes of loose stools early this morning. Her WBC significantly trended down overnight. Platelet also significantly trended down. Hemoglobin remained stable at 7.2. Will send for stool studies. Will also place patient on neutropenic precautions. pRBC transfusion held as her LDH did come back elevated. 05/30: Patient's hemoglobin trended down to 6.7 this morning. Hematology has ordered 2 units of packed RBCs. Upon encounter, she appears comfortable. She says she still has occasional chills from time to time. She says her abdominal pain continued to improve. She. He tolerated well a regular diet this morning. She denies prior diagnosis of SLE or autoimmune disease. Her pancytopenia, acute renal failure and pancreatitis raises the possibility of an autoimmune process like SLE. Her IgG4 level did come back elevated. Will send for JAMES antibodies with reflex and anti-dsDNA. 05/31: Patient had episode of blood-tinged sputum last night. Upon encounter, she says her abdominal pain continues to improve. She complains of mild shortness of breath. She does have crackles more prominent on the left side. She did get 2 units of packed RBCs yesterday. Her Hb, WBC and plate counts have recovered. On reevaluation, she does appear to have a very faint stigmata of facial rash on both cheeks. When asked if she had a malar rash before, she says that she had a chronic rash in both of her cheeks before and was prescribed with an unrecalled cream by a mill roll rewinder a few years ago and this did significantly improve the rash on her face. Will send for a scleroderma and RF panel as well today. Patient does report of having bedbugs at her apartment but denies recent tick bites. Denies recent travel outside of [place]. Denies recent mountain trekking or trail hiking. Reason For Visit: ACUTE PANCREATITIS, INTRACTABLE VOMITING, ACUTE Physical Exam Vital Signs: Temp Pulse Resp BP Pulse Ox 98.5 F 116 H 18 140/94 H 99 05/31/19 11:36 05/31/19 13:41 05/31/19 13:41 05/31/19 11:36 05/31/19 13:41 Intake & Output 05/30/19 05/31/19 06/01/19 06:59 06:59 06:59 Intake Total 1050 3004 293 Output Total 400 2 Balance 650 3002 293 Weight 129 lb 6.581 oz 129 lb 6.581 oz General appearance: PRESENT: no acute distress, well-developed, well-nourished Head exam: PRESENT: atraumatic, normocephalic Eye exam: PRESENT: conjunctiva pink, EOMI, PERRLA. ABSENT: scleral icterus Ear exam: PRESENT: normal external ear exam Mouth exam: PRESENT: moist, tongue midline Neck exam: ABSENT: carotid bruit, JVD, lymphadenopathy, thyromegaly Respiratory exam: PRESENT: rales, rhonchi. ABSENT: wheezes Cardiovascular exam: PRESENT: RRR. ABSENT: diastolic murmur, rubs, systolic murmur Pulses: PRESENT: normal dorsalis pedis pul GI/Abdominal exam: PRESENT: normal bowel sounds, soft. ABSENT: distended, guarding, mass, organolmegaly, rebound, tenderness Rectal exam: PRESENT: deferred Neurological exam: PRESENT: alert, awake, oriented to person, oriented to place, oriented to time, oriented to situation, CN II-XII grossly intact. ABSENT: motor sensory deficit Results Laboratory Results: 05/31/19 00:26 05/30/19 04:24 05/28/19 05/31/19 17:00 00:26 WBC 5.0 D RBC 3.70 L Hgb 10.1 L D Hct 29.7 L MCV 80 D MCH 27.4 MCHC 34.1 RDW 15.3 H Plt Count 84 L Seg Neutrophils % 84.8 H Blood Type A POSITIVE Antibody Screen NEGATIVE Impressions: Abdomen Ultrasound 05/26/19 21:34 IMPRESSION: No cholelithiasis, evidence of acute cholecystitis, or evidence of biliary obstruction. Possible pancreatitis involving the pancreatic head versus artifact producing decreased echogenicity. Abdomen/Pelvis CT 05/28/19 00:00 IMPRESSION: NO SIGNIFICANT OR ACUTE FINDINGS IN THE ABDOMEN OR PELVIS. Chest X-Ray 05/28/19 00:00 IMPRESSION: NO SIGNIFICANT RADIOGRAPHIC FINDING IN THE CHEST. Chest CT 05/31/19 00:00 IMPRESSION: Acute asymmetric ground-glass opacities and areas of consolidation in a perihilar distribution associated with interlobular septal thickening. The differential considerations include pneumonia, cardiogenic and noncardiogenic edema, diffuse alveolar hemorrhage, and pulmonary alveolar proteinosis. Assessment and Plan - Diagnosis (1) Acute pancreatitis Qualifiers: Pancreatitis type: unspecified pancreatitis type Acute pancreatitis complication: unspecified Qualified Code(s): K85.90 - Acute pancreatitis without necrosis or infection, unspecified Is this a current diagnosis for this admission?: Yes Plan: 05/28: Lipase has been trending down. Patient denies alcohol drinking. No biliary obstruction on repeat imaging. Abdominal pain continues to improve. Repeat vitals also unremarkable. She is tolerating clear liquids. Will advance to full liquid diet. We will also check IgG4 levels. 05/29: Improving. 05/30: Tolerating advanced diet. 05/31: Improved. (2) Pancytopenia Is this a current diagnosis for this admission?: Yes Plan: 05/28: Unsure about exact etiology at the moment. We will try to reduce m edications that can potentially contribute to pancytopenia. Discontinue Primaxin and Vibramycin. Switch IV antibiotics to Rocephin. Will check an anemia panel. Will give a unit of packed RBC as she has been persistently tachycardic. Will consult hematology for further recommendations. 05/29: Her WBC significantly trended down overnight. Platelet also significantly trended down. Hemoglobin remained stable at 7.2. Will also place patient on neutropenic precautions. pRBC transfusion held as her LDH did come back elevated. Started on prednisone 60 mg daily per hematology recommendations. 05/30: Hb trended down to 6.7. She will be getting 2 u of pRBCs. 05/31: Her Hb, WBC and plate counts have recovered. (3) Acute nontraumatic kidney injury Is this a current diagnosis for this admission?: Yes Plan: Resolved with IV fluids. (4) UTI (urinary tract infection) Qualifiers: Urinary tract infection type: site unspecified Hematuria presence: with hematuria Qualified Code(s): N39.0 - Urinary tract infection, site not specif ied Is this a current diagnosis for this admission?: Yes Plan: 05/28: UA did show pyuria and bacteriuria. Urine culture growing gram-negative r ods so far. Switch IV antibiotics to Rocephin. (5) Hypothyroidism Is this a current diagnosis for this admission?: Yes - Plan Summary Summary: Patient is admitted to the medical floor where she will receive routine s upportive and symptomatic cares. She will be treated with high-volume IV fluids utilizing D5 LR. She will receive morphine sulfate 2 to 4 mg IV every 2 hours on an as needed basis for pain control. She will receive Protonix 40 mg IV every 12 hours for stomach acid suppression. She will be on clear liquids until she can tolerate them well before advancing her diet. Her intractable vomiting will be treated with chlorpromazine 25 mg IV every 4 hours as needed. CBCs, metabolic profiles, lipase levels, amylase levels and magnesium levels be followed on a regular basis as needed. A lipid profile and a thyroid profile will be obtained as part of her evaluation. - Time Time Spent with patient: 25-34 minutes
--- NOTE | 2019-05-31 17:58 | XCELERA REPORT ---
[address] [address] Transthoracic Echocardiogram Report Name: HALLIE ROSS Age: 24 yrs Gender: Female : 1995 Patient Status: Inpatient Patient Location: [address] [place], [place] [address] Study Date: 05/31/2019 04:22 PM Height: 62 in Weight: 129 lb BSA: 1.6 m2 Procedure: A complete two-dimensional transthoracic echocardiogram was performed (2D, M-mode, spectral and color flow Doppler). The study was technically adequate with some images being suboptimal in quality. Reason For Study: SOB, possible ILD, assess RVSP Ordering Physician: CONSTANTINO ROBLES Performed By: James Borrero Interpretation Summary Left ventricular systolic function is normal. There is normal left ventricular wall thickness. No regional wall motion abnormalities noted. The left ventricle is grossly normal size. The right ventricular systolic function is normal. The right ventricle is grossly normal size. The right atrium is normal. The left atrial size is normal. There is a trace to mild amount of mitral regurgitation There is no mitral valve stenosis. No aortic regurgitation is present. There is no aortic valve stenosis There is a mild amount of tricuspid regurgitation Best estimated right ventricular systolic pressure is elevated at 30-40mmHg. There is mild pulmonary hypertension by echo The aortic root is not well visualized. The inferior vena cava appeared normal and decreased > 50% with respiration (RAP 5-10 mmHg) There is no pericardial effusion. MMode/2D Measurements & Calculations RVDd: 2.5 cm LVIDd: 4.3 cm FS: 39.5 % Ao root diam: 2.4 cm IVSd: 0.74 cm LVIDs: 2.6 cm EDV(Teich): 80.9 ml Ao root area: 4.5 cm2 LVPWd: 0.77 cm ESV(Teich): 24.0 ml LA dimension: 3.2 cm EF(Teich): 70.4 % Doppler Measurements & Calculations MV E max alirio: MV P1/2t max alirio: Ao V2 max: LV V1 max P.9 cm/sec 125.0 cm/sec 135.1 cm/sec 5.9 mmHg MV A max alirio: MV P1/2t: 48.1 msec Ao max PG: LV V1 max: 62.2 cm/sec MVA(P1/2t): 4.6 cm2 7.3 mmHg 121.9 cm/sec MV E/A: 2.0 MV dec slope: 760.4 cm/sec2 MV dec time: 0.18 sec PA V2 max: PI end-d alirio: TR max alirio: MV P1/2t-pr_phl: 91.3 cm/sec 154.7 cm/sec 290.5 cm/sec 48.1 msec PA max P.3 mmHg TR max P.8 mmHg Left Ventricle The left ventricle is grossly normal size. There is normal left ventricular wall thickness. Left ventricular systolic function is normal. LV diastolic function could not be adequately assessed. No regional wall motion abnormalities noted. Right Ventricle The right ventricle is grossly normal size. There is normal right ventricular wall thickness. The right ventricular systolic function is normal. Atria The right atrium is normal. The left atrial size is normal. Interarterial septum not well visualized and not well dopplered. Cannot comment on ASD/PFO presence. Mitral Valve The mitral valve is grossly normal. There is no mitral valve stenosis. There is a trace to mild amount of mitral regurgitation. Aortic Valve The aortic valve is grossly normal. There is no aortic valve stenosis. No aortic regurgitation is present. Tricuspid Valve The tricuspid valve is not well visualized, but is grossly normal. There is no tricuspid stenosis. There is a mild amount of tricuspid regurgitation. Best estimated right ventricular systolic pressure is elevated at 30-40mmHg. There is mild pulmonary hypertension by echo. Pulmonic Valve The pulmonic valve is not well seen, but is grossly normal. There is no pulmonic valvular stenosis. There is a mild amount of pulmonic regurgitation. Great Vessels The aortic root is not well visualized. The inferior vena cava appeared normal and decreased > 50% with respiration (RAP 5-10 mmHg). Effusions There is no pericardial effusion. : CONSTANTINO ROBLES Shyamal
[2019-05-31 22:36] LABS: ABSOLUTE LYMPHOCYTES (AUTO) 0.4 10^3/uL (0.5-4.7); ABSOLUTE MONOCYTES (AUTO) 0.1 10^3/uL (0.1-1.4); ABSOLUTE NEUT (AUTO) 2.5 10^3/uL (1.7-8.2); BASOPHILS % (AUTO) 0.2 % (0-2); HEMATOCRIT 24.8 % (36.0-47.0); HEMOGLOBIN 8.5 g/dL (12.0-15.5); LYMPHOCYTES % (AUTO) 12.2 % (13-45); MEAN CORPUSCULAR HEMOGLOBIN 27.3 pg (27.0-33.4); MEAN CORPUSCULAR HGB CONC 34.4 g/dL (32.0-36.0); MEAN CORPUSCULAR VOLUME 79 fl (80-97); MONOCYTES % (AUTO) 4.8 % (3-13); RED BLOOD COUNT 3.13 10^6/uL (3.72-5.28); RED CELL DISTRIBUTION WIDTH 15.2 % (11.5-14.0); SEGMENTED NEUTROPHILS % (AUTO) 82.8 % (42-78); TOTAL CELLS COUNTED % (AUTO) 100 %; WHITE BLOOD COUNT 3.1 10^3/uL (4.0-10.5)
[2019-05-31 22:55] LABS: PLATELET COUNT 67 10^3/uL (150-450)
[2019-05-31] MEDS: FUROSEMIDE INJ/PF 20 MG/2 ML SDV IV SCH (22:58)
[2019-06-01 07:41] LABS: ALBUMIN 2.2 g/dL (3.5-5.0); ALKALINE PHOSPHATASE 31 U/L (38-126); ANION GAP 8 (5-19); ASPARTATE AMINO TRANSFERASE 115 U/L (14-36); BILIRUBIN,TOTAL 0.5 mg/dL (0.2-1.3); BLOOD UREA NITROGEN 28 mg/dL (7-20); CARBON DIOXIDE 18 mmol/L (22-30); CHLORIDE 116 mmol/L (98-107); GLUCOSE 85 mg/dL (75-110); POTASSIUM 3.4 mmol/L (3.6-5.0); TOTAL PROTEIN 4.8 g/dL (6.3-8.2)
[2019-06-01 08:17] LABS: ABSOLUTE LYMPHOCYTES (AUTO) 0.5 10^3/uL (0.5-4.7); ABSOLUTE MONOCYTES (AUTO) 0.1 10^3/uL (0.1-1.4); ABSOLUTE NEUT (AUTO) 2.5 10^3/uL (1.7-8.2); BASOPHILS % (AUTO) 0.1 % (0-2); HEMATOCRIT 24.1 % (36.0-47.0); HEMOGLOBIN 8.3 g/dL (12.0-15.5); LYMPHOCYTES % (AUTO) 15.1 % (13-45); MEAN CORPUSCULAR HGB CONC 34.6 g/dL (32.0-36.0); MEAN CORPUSCULAR VOLUME 78 fl (80-97); MONOCYTES % (AUTO) 3.8 % (3-13); RED BLOOD COUNT 3.09 10^6/uL (3.72-5.28); RED CELL DISTRIBUTION WIDTH 15.3 % (11.5-14.0); TOTAL CELLS COUNTED % (AUTO) 100 %; WHITE BLOOD COUNT 3.1 10^3/uL (4.0-10.5)
--- NOTE | 2019-06-01 08:24 | RADIOLOGY REPORT (SQ) ---
EXAM DESCRIPTION: CHEST SINGLE VIEW COMPLETED DATE/TIME: 06/01/2019 7:42 am REASON FOR STUDY: assess for congestion COMPARISON: 05/28/2019 EXAM PARAMETERS: NUMBER OF VIEWS: One view. TECHNIQUE: Single frontal radiographic view of the chest acquired. RADIATION DOSE: NA LIMITATIONS: None. FINDINGS: LUNGS AND PLEURA: Interval development of extensive parenchymal opacity throughout the kathleen gs. Air bronchograms. No effusions. MEDIASTINUM AND HILAR STRUCTURES: No masses. Contour normal. HEART AND VASCULAR STRUCTURES: Heart normal in size. Normal vasculature. BONES: No acute findings. HARDWARE: None in the chest. OTHER: No other significant finding. IMPRESSION: Extensive diffuse parenchymal opacities in the lungs. Differential includes noncardioge taiwo pulmonary edema, pneumonia, vaping related illness. TECHNICAL DOCUMENTATION: JOB ID: [id number] [employer]- All Rights Reserved Reading location - IP/workstation name: [email or web address]
[2019-06-01 08:32] LABS: PLATELET COUNT 75 10^3/uL (150-450)
[2019-06-01] MEDS: MORPHINE SULFATE 10 MG/ML INJ IV PRN (09:47)
[2019-06-01] MEDS: PREDNISONE 20 MG TABLET PO SCH (09:47)
[2019-06-01] MEDS: FUROSEMIDE INJ/PF 20 MG/2 ML SDV IV SCH ×2 (09:47→22:29)
[2019-06-01] MEDS: METOCLOPRAMIDE HCL INJ/PF 10 MG/2 ML SDV IV SCH ×3 (09:47→17:16)
[2019-06-01] MEDS: PANTOPRAZOLE SODIUM 40 MG VIAL IV SCH ×2 (09:47→22:30)
[2019-06-01] MEDS: CEFTRIAXONE 1 GM/D5W RTU 1 GM/50 ML RTUPB IV SCH (09:48)
[2019-06-01] MEDS: CALAMINE/ZINC OXIDE LOTION 177 ML/BOTTLE TP SCH ×4 (09:48→22:30)
[2019-06-01] MEDS ORDERED: POTASSIUM CHLORIDE 10 MEQ TABLET.ER PO ONE (11:30)
[2019-06-01 12:12] LABS: ARTERIAL BLOOD BASE EXCESS -4.6 mmol/L; ARTERIAL BLOOD H2CO3 0.85 mmol/L (1.05-1.35); ARTERIAL BLOOD HCO3 18.7 mmol/L (20-24); ARTERIAL BLOOD PCO2 28.1 mmHg (35-45); ARTERIAL BLOOD PH 7.44 (7.35-7.45); ARTERIAL BLOOD PO2 104.1 mmHg (80-100); ARTERIAL BLOOD TOTAL CO2 19.6 mmol/L (21-25)
[2019-06-01 12:13] LABS: ARTERIAL BLOOD FIO2 2.5L
--- NOTE | 2019-06-01 12:28 | PDOC TRANSFER SUMMARY ---
General Admission Date/PCP: 05/26/19 23:56 AMIRA HENDERSON MD Resuscitation Status: Full Code - Transfer Diagnosis (1) Lupus (systemic lupus erythematosus) Is this a current diagnosis for this admission?: Yes (2) Acute pancreatitis Is this a current diagnosis for this admission?: Yes (3) Pancytopenia Is this a current diagnosis for this admission?: Yes (4) Acute nontraumatic kidney injury Is this a current diagnosis for this admission?: Yes (5) UTI (urinary tract infection) Is this a current diagnosis for this admission?: Yes (6) Hypothyroidism Is this a current diagnosis for this admission?: Yes - Transfer Medications Home Medications: No Home Medications 05/26/19 Transfer Medications: Current Medications Acetaminophen (Tylenol 325 Mg Tablet) 650 mg PO Q4HP PRN PRN Reason: FEVER OR PAIN Stop: 06/26/19 07:27 Last Admin: 05/28/19 17:54 Dose: 650 mg Documented by: Albuterol/Ipratropium (Duoneb 3 Ml Ampul) 3 ml NEB RTQ4HP PRN PRN Reason: FOR SHORTNESS OF BREATH Stop: 06/30/19 12:00 Last Admin: 05/31/19 13:37 Dose: 3 ml Documented by: Calamine (Calamine Lotion 177 Ml/Bottle) 1 applic TP QID [facility] Stop: 06/26/19 09:59 Last Admin: 06/01/19 09:48 Dose: Not Given Documented by: Diphenhydramine HCl (Benadryl Inj 50 Mg/1 Ml Vial) 50 mg IV Q6HP PRN PRN Reason: ITCHING Stop: 06/26/19 03:07 Furosemide (Lasix Inj/Pf 20 Mg/2 Ml Sdv) 20 mg IV Q12 [facility] Stop: 06/03/19 10:01 Last Admin: 06/01/19 09:47 Dose: 20 mg Documented by: Dextrose/Sodium Chloride (D5ns 1000 Ml Iv Soln) 1,000 mls @ 250 mls/hr IV CONTINUOUS PRN PRN Reason: THIS MED IS NOT "PRN" Stop: 06/26/19 00:33 Last Infusion: 05/31/19 13:07 Dose: 0 mls/hr Documented by: Ceftriaxone Sodium/Dextrose (Rocephin Rtu 1 Gm/D5w 50 Ml Premix) 1 gm in 50 mls @ 100 mls/hr IV DAILY [facility] Stop: 06/05/19 09:59 Last Admin: 06/01/19 09:48 Dose: 100 mls/hr, 100 mls/hr Documented by: Lorazepam (Ativan Inj 2 Mg/1 Ml Vial) 1 mg IV Q4HP PRN PRN Reason: ANXIETY/AGITATION Stop: 06/03/19 03:07 Last Admin: 05/31/19 06:08 Dose: 1 mg Documented by: Metoclopramide HCl (Reglan Inj/Pf 10 Mg/2 Ml Sdv) 10 mg IV ACHS [facility] Stop: 06/26/19 07:59 Last Admin: 06/01/19 09:47 Dose: 10 mg Documented by: Metoprolol Tartrate (Lopressor Inj/Pf 5 Mg/5 Ml Sdv) 2.5 mg IV Q6HP PRN PRN Reason: Give For Sbp > [150] Stop: 06/27/19 22:07 Morphine Sulfate (Morphine 10 Mg/Ml Inj) 2 mg IV Q2HP PRN PRN Reason: FOR PAIN SCALE 1-2 Stop: 06/03/19 00:44 Morphine Sulfate (Morphine 10 Mg/Ml Inj) 3 mg IV Q2HP PRN PRN Reason: FOR PAIN SCALE 3-4 Stop: 06/03/19 00:44 Last Admin: 06/01/19 09:47 Dose: 3 mg Documented by: Morphine Sulfate (Morphine 10 Mg/Ml Inj) 4 mg IV Q2HP PRN PRN Reason: PAIN SCALE OF 5 Stop: 06/03/19 00:44 Nystatin (Mycostatin 500,000 Unit/5 Ml Susp Udcup) 500,000 unit PO QID [facility] Stop: 06/08/19 10:59 Ondansetron HCl (Zofran Inj/Pf 4 Mg/2 Ml Sdv) 4 mg IV Q6HP PRN PRN Reason: FOR NAUSEA/VOMITING Stop: 06/27/19 16:41 Pantoprazole Sodium (Protonix Iv Inj 40 Mg Vial) 40 mg IV Q12 [facility] Stop: 06/03/19 09:59 Last Admin: 06/01/19 09:47 Dose: 40 mg Documented by: Prednisone (Deltasone 20 Mg Tablet) 40 mg PO BID [facility] Stop: 07/01/19 17:59 Sodium Chloride (Saline Flush 2.5 Ml Monoject Prefil Syrin) 2.5 ml IV Q8 [facility] Stop: 06/26/19 05:59 Last Admin: 06/01/19 05:14 Dose: Not Given Documented by: - Allergies Allergies/Adverse Reactions: No Known Allergies Allergy (Verified 05/26/19 19:10) Hospital Course Hospital Course: This is a 24-year-old female who initially presented nausea, vomiting, abdominal pain and diarrhea. Her work-up was initially remarkable for elevated lipase and pancreatitis particularly on the pancreatic head on abdominal ultrasound. She was also found to be in acute renal failure. She was initially made n.p.o. and started on IV fluids and IV pain medications. She was initially managed as a case of acute pancreatitis. She she did have improvement of abdominal pain and was able to tolerate advanced diet. She had mild pancytopenia initially but this worsened during this hospital course. Hematology was also consulted. She was started on prednisone. Her WBC went down to as low as 0.9. Her hemoglobin also went down to 6.7 from 11. Platelet also went down to as low as 58. She had an episode of hemoptysis yesterday. Chest CT was pursued which showed groundglass opacities, with differential including cardiogenic edema, pulmonary hemorrhage versus pulmonary alveolar proteinosis. Echocardiogram was pursued. She had a normal EF but did have mild pulmonary hypertension with RSVP of 38-48. Did have 2 units of packed RBC transfused. Her blood counts slightly improved with prednisone. Repeat CBC today shows slightly lower hemoglobin of 8.3, WBC trended down again to 3.5 and platelets continue to be low. An autoimmune work-up was pursued as patient did report that she had a malar rash of years back and was prescribed with an unrecalled cream by lehr operator. She said that this significantly improved the rash but a very faint bilateral rash is still noticeable. Autoimmune work-up so far came back remarkable for a positive JAMES and significantly elevated anti-dsDNA supportive of systemic lupus erythematosus. Called [facility] and [facility],both currently do not have rheumatology services. Discussed with [facility] and discussed with Dr. Alice Suárez, [facility] rheumatology who recommend switching prednisone to IV Solu-Medrol. Patient will be transferred to [facility] for possible pulse steroid and Cytoxan treatment. Discussed with [facility] accepting hospitalist, Dr. Clemons who accepted the transfer. Physical Exam Vital Signs: Temp Pulse Resp BP Pulse Ox 98.4 F 110 H 17 136/80 H 95 06/01/19 07:48 06/01/19 07:48 06/01/19 07:48 06/01/19 07:48 06/01/19 07:48 Intake & Output 05/31/19 06/01/19 06/02/19 06:59 06:59 06:59 Intake Total 3004 413 Output Total 2 25 Balance 3002 388 Weight 129 lb 6.581 oz 129 lb 6.581 oz General appearance: PRESENT: no acute distress, well-developed, well-nourished Head exam: PRESENT: atraumatic, normocephalic Eye exam: PRESENT: conjunctiva pink, EOMI, PERRLA. ABSENT: scleral icterus Ear exam: PRESENT: normal external ear exam Mouth exam: PRESENT: moist, tongue midline Neck exam: ABSENT: carotid bruit, JVD, lymphadenopathy, thyromegaly Respiratory exam: PRESENT: rales. ABSENT: rhonchi, wheezes Cardiovascular exam: PRESENT: RRR. ABSENT: diastolic murmur, rubs, systolic murmur Pulses: PRESENT: normal dorsalis pedis pul GI/Abdominal exam: PRESENT: normal bowel sounds, soft. ABSENT: distended, guarding, mass, organolmegaly, rebound, tenderness Rectal exam: PRESENT: deferred Extremities exam: PRESENT: full ROM. ABSENT: calf tenderness, clubbing, pedal edema Neurological exam: PRESENT: alert, awake, oriented to person, oriented to place, oriented to time, oriented to situation, CN II-XII grossly intact. ABSENT: motor sensory deficit Results Laboratory Results: 06/01/19 07:12 06/01/19 07:12 05/31/19 05/31/19 05/31/19 21:20 22:13 22:13 WBC 3.1 L RBC 3.13 L Hgb 8.5 L Hct 24.8 L MCV 79 L MCH 27.3 MCHC 34.4 RDW 15.2 H Plt Count 67 L Seg Neutrophils % 82.8 H Sodium Potassium Chloride Carbon Dioxide Anion Gap BUN Creatinine Est GFR ( Amer) Glucose Lactic Acid Cancelled 1.6 Calcium Total Bilirubin AST Alkaline Phosphatase Total Protein Albumin Lipase 06/01/19 06/01/19 06/01/19 07:12 07:12 07:12 WBC 3.1 L RBC 3.09 L Hgb 8.3 L Hct 24.1 L MCV 78 L MCH 27.0 MCHC 34.6 RDW 15.3 H Plt Count 75 L Seg Neutrophils % 81.0 H Sodium 141.6 Potassium 3.4 L Chloride 116 H Carbon Dioxide 18 L Anion Gap 8 BUN 28 H Creatinine 1.13 Est GFR ( Amer) > 60 Glucose 85 Lactic Acid Calcium 7.0 L* Total Bilirubin 0.5 AST 115 H Alkaline Phosphatase 31 L Total Protein 4.8 L Albumin 2.2 L Lipase 854.0 H 05/31/19 05/31/19 00:26 17:28 Creatine Kinase 2540 H NT-Pro-B Natriuret Pep 17951 H Impressions: Abdomen Ultrasound 05/26/19 21:34 IMPRESSION: No cholelithiasis, evidence of acute cholecystitis, or evidence of biliary obstruction. Possible pancreatitis involving the pancreatic head versus artifact producing decreased echogenicity. Abdomen/Pelvis CT 05/28/19 00:00 IMPRESSION: NO SIGNIFICANT OR ACUTE FINDINGS IN THE ABDOMEN OR PELVIS. Chest CT 05/31/19 00:00 IMPRESSION: Acute asymmetric ground-glass opacities and areas of consolidation in a perihilar distribution associated with interlobular septal thickening. The differential considerations include pneumonia, cardiogenic and noncardiogenic edema, diffuse alveolar hemorrhage, and pulmonary alveolar proteinosis. Chest X-Ray 06/01/19 06:28 IMPRESSION: Extensive diffuse parenchymal opacities in the lungs. Differential includes noncardiogenic pulmonary edema, pneumonia, vaping related illness.
[2019-06-01] MEDS: NYSTATIN 500000 UNIT/5 ML UDCUP PO SCH ×4 (12:29→22:29)
[2019-06-01] MEDS ORDERED: PREDNISONE 20 MG TABLET PO SCH (18:00)
[2019-06-01] MEDS ORDERED: ZOLPIDEM TARTRATE 5 MG TABLET PO SCH (22:00)
[2019-06-01] MEDS: METHYLPREDNISOLONE INJ 40 MG/1 ML SDV IV SCH (22:29)
[2019-06-02 06:02] LABS: ABSOLUTE LYMPHOCYTES (AUTO) 0.4 10^3/uL (0.5-4.7); ABSOLUTE MONOCYTES (AUTO) 0.1 10^3/uL (0.1-1.4); ABSOLUTE NEUT (AUTO) 2.1 10^3/uL (1.7-8.2); BASOPHILS % (AUTO) 0.2 % (0-2); HEMATOCRIT 22.3 % (36.0-47.0); MEAN CORPUSCULAR HEMOGLOBIN 27.6 pg (27.0-33.4); MEAN CORPUSCULAR VOLUME 79 fl (80-97); MONOCYTES % (AUTO) 4.5 % (3-13); RED BLOOD COUNT 2.82 10^6/uL (3.72-5.28); RED CELL DISTRIBUTION WIDTH 15.6 % (11.5-14.0); SEGMENTED NEUTROPHILS % (AUTO) 81.3 % (42-78); TOTAL CELLS COUNTED % (AUTO) 100 %; WHITE BLOOD COUNT 2.6 10^3/uL (4.0-10.5)
[2019-06-02 06:24] LABS: ANION GAP 5 (5-19); BLOOD UREA NITROGEN 29 mg/dL (7-20); CALCIUM 7.3 mg/dL (8.4-10.2); CARBON DIOXIDE 23 mmol/L (22-30); CHLORIDE 110 mmol/L (98-107); GLUCOSE 158 mg/dL (75-110); POTASSIUM 3.9 mmol/L (3.6-5.0)
[2019-06-02 06:42] LABS: PLATELET COUNT 63 10^3/uL (150-450)
[2019-06-02 06:45] LABS: HEMOGLOBIN 7.8 g/dL (12.0-15.5)
[2019-06-02] MEDS: PANTOPRAZOLE SODIUM 40 MG VIAL IV SCH (10:28)
[2019-06-02] MEDS: METHYLPREDNISOLONE INJ 40 MG/1 ML SDV IV SCH (10:28)
[2019-06-02] MEDS: NYSTATIN 500000 UNIT/5 ML UDCUP PO SCH ×3 (10:29→17:46)
[2019-06-02] MEDS: FUROSEMIDE INJ/PF 20 MG/2 ML SDV IV SCH (10:29)
[2019-06-02] MEDS: CEFTRIAXONE 1 GM/D5W RTU 1 GM/50 ML RTUPB IV SCH (10:29)
--- NOTE | 2019-06-02 10:33 | RADIOLOGY REPORT (SQ) ---
EXAM DESCRIPTION: CHEST SINGLE VIEW COMPLETED DATE/TIME: 06/02/2019 10:05 am REASON FOR STUDY: SOB COMPARISON: 06/01/2019. EXAM PARAMETERS: NUMBER OF VIEWS: One view. TECHNIQUE: Single frontal radiographic view of the chest acquired. RADIATION DOSE: NA LIMITATIONS: None. FINDINGS: LUNGS AND PLEURA: Faint airspace disease in the lung bases with improved aeration. No lar ge pleural effusion. MEDIASTINUM AND HILAR STRUCTURES: No masses. Contour normal. HEART AND VASCULAR STRUCTURES: Heart normal in size. Normal vasculature. BONES: No acute findings. HARDWARE: None in the chest. OTHER: No other significant finding. IMPRESSION: IMPROVED APPEARANCE OF THE CHEST. FAINT RESIDUAL AIRSPACE DISEASE IN THE LUNG BASES. TECHNICAL DOCUMENTATION: JOB ID: [id number] [employer]- All Rights Reserved Reading location - IP/workstation name: [email or web address]
[2019-06-02] MEDS: CALAMINE/ZINC OXIDE LOTION 177 ML/BOTTLE TP SCH ×3 (10:36→18:01)
[2019-06-02] MEDS: METOPROLOL TARTRATE PF/INJ 5 MG/5 ML SDV IV PRN ×2 (12:00→19:22)
--- NOTE | 2019-06-02 15:06 | Progress Note ---
Provider Note Provider Note: No acute issues overnight. Upon encounter, patient denies acute complaints. She says her abdominal pain continued to improve. She has her loose stools were also improving and is more well formed. Hemoglobin, white count and platelet counts however slightly trended down overnight. [facility] team updated. Continue IV steroids for now. Patient is awaiting bed availability.
[2019-06-02] MEDS: ACETAMINOPHEN 325 MG TABLET PO PRN (17:46)
[2019-06-02 19:16] VITALS: BP 163/90
[2019-06-03 11:37] LABS: ANTINUCLEAR ANTIBODIES Positive (Negative)
[2019-06-03 11:52] LABS: SCLERODERMA-70 ANTIBODIES <0.2 AI (0.0-0.9)
[2019-06-04 14:37] LABS: A/G RATIO. 0.9 (0.7-1.7); ALBUMIN 3 2.4 g/dL (2.9-4.4); ALPHA-1-GLOBULIN 0.3 g/dL (0.0-0.4); BETA GLOBULIN 0.7 g/dL (0.7-1.3); GAMMA GLOBULINS 0.9 g/dL (0.4-1.8); IMMUNOGLOBULIN A 142 mg/dL (87-352); IMMUNOGLOBULIN G 1274 mg/dL (700-1600); IMMUNOGLOBULIN M 54 mg/dL (26-217); MONOCLONAL-SPIKE Not Observed g/dL (Not Observ); PROTEIN TOTAL SERUM 5.1 g/dL (6.0-8.5)
[2019-06-04 16:37] LABS: ALBUMIN URINE 17.5 % (.); ALPHA-1-GLOBULIN URINE 4.3 % (.); ALPHA-2-GLOBULIN UR 24.7 % (.); GAMMA GLOBULIN UR 19.1 % (.); M-SPIKE % URINE Not Observed % (Not Observ); PROTEIN TOTAL URINE 86.4 mg/dL (Not Estab.)
== END 2019-06-02 19:40 | disposition short-term general hospital (02) | DRG 545 ==
LOC: ER 17:22 → EH 23:56 → 4N 05-27 01:25
PROVIDERS: ADMIT Emergency Medicine; ATTEND Emergency Medicine
PROC: 30233N1 Transfusion of Nonautologous Red Blood Cells into Peripheral Vein, Percutaneous Approach (ICD-10-PCS; principal; 2019-05-30)
DX: M32.9 Systemic lupus erythematosus, unspecified (principal); K85.90 Acute pancreatitis without necrosis or infection, unspecified; N17.9 Acute kidney failure, unspecified; D61.818 Other pancytopenia; N39.0 Urinary tract infection, site not specified; R04.2 Hemoptysis; D72.819 Decreased white blood cell count, unspecified; I95.89 Other hypotension; R00.0 Tachycardia, unspecified; E03.9 Hypothyroidism, unspecified; E86.1 Hypovolemia; I27.20 Pulmonary hypertension, unspecified; Z83.3 Family history of diabetes mellitus; Z82.49 Family history of ischemic heart disease and other diseases of the circulatory system; Z82.3 Family history of stroke
CPT/HCPCS: 36415; 36430; 36600; 71045; 71046; 71250; 74176; 74177; 76705; 80048; 80053; 80061; 80074; 80307; 81001; 81025; 82150; 82272; 82330; 82550; 82570; 82607; 82728; 82746; 82803; 83540; 83550; 83605; 83615; 83690; 83735; 83880; 84132; 84156; 84166; 84439; 84443; 84481; 85025; 85027; 85045; 85384; 85610; 85730; 86038; 86200; 86225; 86235; 86320; 86335; 86376; 86430; 86431; 86701; 86850; 86900; 86901; 86920; 87040; 87045; 87070; 87086; 87088; 87205; 87491; 87591; 87804; 89055; 93306; 94640; 96361; 96374; 96375; 99285; C9113; J0696; J0743; J1940; J2060; J2270; J2405; J2543; J2550; J2765; J2920; J2930; J3490; J7030; J7042; J7050; J7060; J7512; J7620; P9016